=== PATIENT | female | born 1975 | race Caucasian/White ===

== ENCOUNTER 2017-06-14 12:52 | Inpatient (IN) | payer MEDICAID ==
[2017-06-14] MEDS ORDERED: Ampicillin/Sulbactam Na 3 GM in Sodium Chloride 0.9% 100 ML IV ONE (13:00)
[2017-06-14] MEDS ORDERED: Naloxone 0.4 MG/ML SDV IVPUSH PRN (13:00)
[2017-06-14] MEDS ORDERED: Neostigmine Methylsulfate 1 MG/ML 5 ML Syringe ONE (13:09)
[2017-06-14] MEDS ORDERED: Ondansetron 4 MG/2 ML SDV ONE (13:09)
[2017-06-14] MEDS ORDERED: Propofol 200 MG/20 ML SDV ONE (13:09)
[2017-06-14] MEDS ORDERED: Dexamethasone 4 MG/ML SDV ONE (13:09)
[2017-06-14] MEDS ORDERED: fentaNYL 250 MCG/5 ML SDV ONE ×2 (13:09→13:49)
[2017-06-14] MEDS ORDERED: Rocuronium 50 MG/5 ML Vial ONE (13:09)
[2017-06-14] MEDS ORDERED: Succinylcholine/Normal Saline 200 MG/10 ML Syringe ONE (13:09)
[2017-06-14] MEDS ORDERED: Bupivacaine 0.5%/EPINEPHrine 1:200,000 50 ML MDV ONE (13:18)
[2017-06-14] MEDS: Dextrose 5%-Lactated Ringers 1,000 ML IV SCH ×2 (13:22→21:00)
[2017-06-14] MEDS: HYDROmorphone/Normal Saline 15 MG/30 ML PCA IV PRN (14:03)
[2017-06-14] MEDS ORDERED: hydrOXYzine HCl 100 MG/2 ML SDV IM ONE (15:03)
[2017-06-14] MEDS ORDERED: Ondansetron 4 MG/2 ML SDV IVPUSH PRN (16:48)
[2017-06-14] MEDS: Ampicillin/Sulbactam Na 3 GM in Sodium Chloride 0.9% 100 ML IV SCH (17:53)
[2017-06-14] MEDS: Pantoprazole 40 MG Vial IV SCH (20:04)
[2017-06-15] MEDS: Ampicillin/Sulbactam Na 3 GM in Sodium Chloride 0.9% 100 ML IV SCH ×4 (00:03→18:06)
[2017-06-15] MEDS: Dextrose 5%-Lactated Ringers 1,000 ML IV SCH (04:45)
[2017-06-15] MEDS: HYDROmorphone/Normal Saline 15 MG/30 ML PCA IV PRN (07:33)
[2017-06-15] MEDS: Citalopram 10 MG Tab PO SCH (08:12)
[2017-06-15] MEDS: Levothyroxine 100 MCG Tab PO SCH (08:12)
[2017-06-15] MEDS ORDERED: Dextrose 5%-Lactated Ringers 1,000 ML IV SCH (08:15)
[2017-06-15] MEDS: Bisacodyl 5 MG Tab PO SCH ×2 (10:01→20:57)
[2017-06-15] MEDS: Docusate Sodium 100 MG Cap PO SCH ×2 (10:01→20:57)
--- NOTE | 2017-06-15 10:05 | PN ---
DATE OF SERVICE: 06/15/2017 The patient has been afebrile with stable vital signs. Pain control appears to be fairly good. Urine output has been good and Ruiz catheter was removed this morning. We will decrease the IV rate, begin a full-liquid diet, and start Colace and Dulcolax schedule. We will probably switch her to oral pain medication tomorrow and perhaps home late tomorrow or . Aryan Jones MD /[id number]
[2017-06-15] MEDS: Acetaminophen/HYDROcodone 325-5 MG Tab PO PRN ×2 (17:43→22:29)
[2017-06-15] MEDS: Pantoprazole 40 MG Vial IV SCH (20:56)
[2017-06-16] MEDS ORDERED: Amoxicillin/Clavulanate K 875-125 MG Tab PO ONE (06:42)
[2017-06-16 07:14] VITALS: BP 122/70
[2017-06-16] MEDS: Acetaminophen/HYDROcodone 325-5 MG Tab PO PRN (07:27)
[2017-06-16] MEDS: Levothyroxine 100 MCG Tab PO SCH (07:28)
[2017-06-16] MEDS ORDERED: Amoxicillin/Clavulanate K 875-125 MG Tab PO SCH (09:00)
--- NOTE | 2017-06-16 09:00 | DISCH ---
ADMISSION DIAGNOSES: Acute appendicitis, status post Cande-en-Y gastric bypass surgery; unspecified surgical malabsorption; B12 deficiency; and vitamin D deficiency. DISCHARGE DIAGNOSES: Diagnostic laparoscopy with lysis of periappendiceal inflammation, partial cecectomy with removal of attached appendix, and drainage of pericolonic abscess for subacute appendicitis with adhesions adherent to the edge of cecum and pericolonic abscess. Date of surgery 06/14/2017. HISTORY: Myrtle Estes is a 41-year-old female who had a 2-week history of right lower quadrant abdominal pain that intensified in the last 3 to 4 days. After preoperative evaluation and discussion of possible risks and possible complications, she wished to proceed with surgical procedure. HOSPITAL COURSE: Myrtle had her surgery on 06/14/2017. She had no operative complications. On postop day #1, she was changed to oral pain medication. She received stool stimulation and was started on a diet. On postop day #2, she was ready to be discharged to home without any complications. PHYSICAL EXAMINATION: GENERAL: Myrtle Estes is a 41-year-old female. She is alert and orientated. VITAL SIGNS: Height is 5 feet 8.11 inches. Weight is 227 pounds. TPR is 98.7, 66, 16, and blood pressure 122/70. HEENT: Negative. NECK: Supple. HEART: Regular rate and rhythm. LUNGS: Clear. ABDOMEN: JAME drain is intact and has been draining 330 mL of a pink serous drainage. Her sutures look good. Abdominal binder has been on. JAME drain will be removed prior to discharge. EXTREMITIES: Without peripheral edema. DISPOSITION: Discharged to home. CONDITION: Stable and improving. FOLLOWUP APPOINTMENT: With Galina Bolden PA-C, on 06/23/2017 at 10 a.m. DISCHARGE MEDICATIONS: Home medications; Augmentin 875 mg 1 tablet every 12 hours, #20; hydrocodone 1 to 2 oral every 4 hours p.r.n. pain, #30. She is to resume her home medications. DISCHARGE DIET: Usual diet as tolerated. Drink 8 to 10 glasses of water a day. ACTIVITY: No lifting greater than 10 pounds for 2 weeks. Walk 6 times daily, distance and time as tolerated. Driving, do not drive while on pain medication. No shower. DISCHARGE INSTRUCTIONS: Notify provider if any fever, increased pain, nausea, or vomiting. Keep incision site clean and dry. Wear abdominal binder for 2 weeks and then as tolerated. Special instruction; use incentive spirometer 10 times every hour while awake for 2 weeks.
[2017-06-16] MEDS: Docusate Sodium 100 MG Cap PO SCH (09:12)
[2017-06-16] MEDS: Bisacodyl 5 MG Tab PO SCH (09:13)
[2017-06-16] MEDS: Citalopram 10 MG Tab PO SCH (09:13)
--- NOTE | 2017-06-17 11:19 | OR ---
DATE OF PROCEDURE: 06/14/2017 PREOPERATIVE DIAGNOSIS: Acute appendicitis. POSTOPERATIVE DIAGNOSES: 1. Subacute and acute appendicitis with dense adhesions to the pelvic sidewall and edge of cecum. 2. Pericolonic abscess. OPERATIVE PROCEDURES: Diagnostic laparoscopy with lysis of periappendiceal inflammatory adhesions and a partial cystectomy: 1. Including removal of the overlying appendix (71787). 2. Drainage of pericolonic abscess (84749). ANESTHESIA: General. WOOD SCRAP HANDLER: Galina Bolden PA-C. INDICATION FOR PROCEDURE: This is a 41-year-old who [place] and has felt ill from an abdominal standpoint for roughly the last 7 to 10 days. She had been into the clinic this morning and the CT subsequently was obtained which confirmed an acute appendicitis. Plan is to proceed with a diagnostic laparoscopy, with laparotomy if necessary, and appendectomy, additional procedures may be required depending on operative findings otherwise; potential risks including bleeding, infection, leaks from the GI tract closures such as the appendectomy stump were all reviewed, and the patient wishes to proceed. PROCEDURE IN DETAILS: The patient was taken to the operating room. After general endotracheal anesthesia was induced, a Ruiz catheter was inserted and the abdomen prepped and draped. Three fingerbreadths superior and to the left of the xiphoid process, a transverse incision was made and the peritoneal cavity entered under direct vision with Optiview trocar inflated to 15 mmHg pressure with CO2. Laparoscope was then reinserted. No underlying trocar insertion site injuries were seen. Following this, 12 mm trocars were placed in the left lower quadrant and right upper quadrant and the area around the cecum then examined. The patient was noted to have a very dense inflammatory mass, this at this point had gone beyond the acute phase where the soft tissue could be and there was actually some quite a bit in the way of dense scar formation already occurring between the appendix and adjacent cecum to the lateral and posterior abdominal wall. These adhesions were taken down with Harmonic scalpel. Once this was mobilized upward, the base of the appendix and adjacent cecum were too thick to safely staple. Given this, a portion of the cecum was excised at a plane where the wall of the bowel was supple, this was accomplished with 2 firings of the LUMA purple loads and mesentery of the appendix was divided with a combination of casandra and Harmonic scalpel. Specimen was then delivered from the field through a specimen retrieval bag. During the dissection 2 points of abscess formation lateral to the cecum were encountered within the dense scar formation. Cultures of these were obtained. At this point, no further problems were noted. The Reggie-Frost drain was taken through a 5 mm trocar and placed in the right flank and draped across the cecal staple line and from there into the pelvis. Some fibrin sealant was also placed over the area of dissection deep to facilitate continued hemostasis and more superiorly of the staple lines. The ileocecal valve was confirmed to be unobstructed and at that point, no further problems were noted. Trocars were removed and the fascia at the trocar sites was closed with 0 Vicryl stitch and the skin with 4-0 Vicryl skin stitch. The patient was taken to the recovery room in a satisfactory condition. Physician assistant editor, Galina Bolden, played an essential role in assisting in this case, helping to position the patient, retracting structures, suturing and cutting sutures as indicated. Her presence improved the patient's safety and decreased operative time. Aryan Jones MD /[id number]
== END 2017-06-16 10:10 | disposition home or self-care (01) | DRG 330 ==
LOC: JP.SDS 12:52 → JP.MS 12:52 → EDSTATUS 13:00 → JP.2SS 15:00
PROVIDERS: ADMIT Surgery; ATTEND Surgery
DX: K35.80 Unspecified acute appendicitis (principal); K63.0 Abscess of intestine; K91.2 Postsurgical malabsorption, not elsewhere classified; E53.8 Deficiency of other specified B group vitamins; E55.9 Vitamin D deficiency, unspecified; Z98.84 Bariatric surgery status; Z98.0 Intestinal bypass and anastomosis status
CPT/HCPCS: 87070; 87075; 87205; 88304; 94762; A9270-GY; C9113; J0295; J1100; J1170; J2405; J2704; J3010; J3410; J7030; J7042

== ENCOUNTER 2017-06-25 21:06 | Emergency (ER) | payer MEDICAID ==
[2017-06-25 22:04] VITALS: BP 115/58
--- NOTE | 2017-06-25 22:28 | EDM.PDOC ---
ED HPI GENERAL MEDICAL PROBLEM - General Chief Complaint: Wound Recheck Stated Complaint: SURGERY STITCHES COMING OPEN Time Seen by Provider: 06/25/17 22:24 Source of Information: Reports: Patient, RN Notes Reviewed History Limitations: Reports: No Limitations - History of Present Illness INITIAL COMMENTS - FREE TEXT/NARRATIVE: 41-year-old female presents emergency department day with opening of surgical wound surgeries done 16 June sutures have been removed and she is using Steri- Strips done laparoscopically no functional complaints - Related Data Allergies Allergy/AdvReac Type Severity Reaction Status Date / Time No Known Allergies Allergy Verified 06/14/17 13:35 Home Meds: Home Meds Cyanocobalamin (Vitamin B-12) [Vitamin B-12] 2,500 mcg PO DAILY 02/16/14 [ History] Cholecalciferol (Vitamin D3) [Vitamin D3] 5,000 unit PO DAILY 12/12/16 [History] Citalopram [Citalopram HBr] 10 mg PO DAILY 12/12/16 [History] Levothyroxine 200 mcg PO ACBREAKFAST 12/12/16 [History] Pantoprazole [ProTONIX] 40 mg PO BIDAC #60 tab.cr 12/14/16 [Rx] Calcium Citrate/Vitamin D3 [Calcium Citrate + D] 1 tab PO DAILY 06/14/17 [ History] Multivitamin with Minerals [Multiple Vitamin] 1 tab PO BID 06/14/17 [History] Naltrexone HCl [Revia] 25 mg PO BID 06/14/17 [History] Vitamin B Complex [B Complex] 1 tab PO DAILY 06/14/17 [History] Acetaminophen/HYDROcodone [[place] 325-5 MG] 1 - 2 tab PO Q4H PRN #30 tablet 06/16 [Rx] Amoxicillin/Clavulanate K [Augmentin 875-125 MG] 1 tab PO Q12HR #20 tablet 06/16 [Rx] Fluconazole [Diflucan] 100 mg PO Q48H 06/25/17 [History] Past Medical History HEENT History: Reports: Impaired Vision Gastrointestinal History: Reports: Chronic Constipation, Chronic Diarrhea, Inflammatory Bowel Disease Other Gastrointestinal History: colitis 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 PLASTICIAN 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: Reports: Dysfunctional Uterine Bleeding, Musculoskeletal History: Reports: Fracture Other Musculoskeletal History: foot Neurological History: Reports: Migraines Psychiatric History: Reports: Depression Endocrine/Metabolic History: Reports: Hypothyroidism, Obesity/BMI 30+ Hematologic History: Reports: Anemia, B12 Deficiency, Iron Deficiency - Infectious Disease History Infectious Disease History: Reports: Chicken Pox, Mononucleosis - Past Surgical History HEENT Surgical History: Reports: Adenoidectomy, Oral Surgery, Tonsillectomy GI Surgical History: Reports: Appendectomy, Bariatric Procedure, Cholecystectomy , Colonoscopy, EGD Female Surgical History: Reports: Hysterectomy Social & Family History - Family History Family Medical History: Noncontributory Cardiac: Reports: CT GI: Reports: None Musculoskeletal: Reports: Arthritis, RA - Tobacco Use Smoking Status *Q: Never Smoker Years of Tobacco use: 1 Used Tobacco, but Quit: No Second Hand Smoke Exposure: No - Caffeine Use Caffeine Use: Reports: None - Alcohol Use Days Per Week of Alcohol Use: 1 Number of Drinks Per Day: 0 Total Drinks Per Week: 0 - Recreational Drug Use Recreational Drug Use: No ED ROS GENERAL - Review of Systems Review Of Systems: See Below Constitutional: Reports: No Symptoms Respiratory: Reports: No Symptoms Cardiovascular: Reports: No Symptoms GI/Abdominal: Reports: No Symptoms : Reports: No Symptoms Skin: Reports: Wound ED EXAM, GENERAL - Physical Exam Exam: See Below Free Text/Narrative:: Examination of the wound midline incisional wound Steri-Strips are partially off once these are removed there is no appreciable erythema around the wound's wound does open up partially through the dermis otherwise the wound is clean dry and intact, the wound was redressed with benzoin and Steri-Strips Course - Vital Signs Last Recorded V/S: Last Vital Signs Temp 97.2 F 06/25/17 22:12 Pulse 58 L 06/25/17 22:12 Resp 16 06/25/17 22:12 BP 115/58 L 06/25/17 22:12 Pulse Ox 98 06/25/17 22:12 Departure - Departure Time of Disposition: 22:27 Disposition: Home, Self-Care 01 Condition: Good Clinical Impression: Encounter for post surgical wound check - Discharge Information Forms: ED Department Discharge Additional Instructions: Continue regular wound care, keep your follow-up appointment with surgery - Assessment/Plan Plan: Assessment Acuity = acute Site and laterality = partial wound opening status post laparoscopic appendectomy Etiology = probably related to stress on the wound Manifestations = none Location of injury = Home Lab values = none Plan Keep follow-up appointment with surgery Patient was in agreement with the plan all questions were answered, they were instructed to return to the emergency department or call for worsening symptoms. This note was dictated using [email or web address] voice recognition software please call with any questions.
== END 2017-06-25 22:37 | disposition home or self-care (01) ==
LOC: JP.ED 21:06
DX: Z48.89 Encounter for other specified surgical aftercare (principal); F32.9 Major depressive disorder, single episode, unspecified; Z86.2 Personal history of diseases of the blood and blood-forming organs and certain disorders involving the immune mechanism; Z98.890 Other specified postprocedural states; Z90.49 Acquired absence of other specified parts of digestive tract; Z79.899 Other long term (current) drug therapy; Z90.710 Acquired absence of both cervix and uterus
CPT/HCPCS: 99281; 99283

== ENCOUNTER 2019-08-03 10:29 | Day surgery (SDC) | payer MEDICAID ==
[~2019-08-03 10:29] MED LIST: Midazolam 1 MG/ML 2 ML SDV ONE; Propofol 200 MG/20 ML SDV ONE; fentaNYL 100 MCG/2 ML SDV ONE
[2019-08-03] MEDS ORDERED: Cyanocobalamin (Vitamin B12) 1,000 MCG/ML SDV IM ONE (11:00)
[2019-08-03] MEDS ORDERED: Lactated Ringers 1,000 ML IV ONE (11:00)
[2019-08-03] MEDS ORDERED: Glycopyrrolate 0.2 MG/ML 2 ML SDV IVPUSH ONE (11:45)
[2019-08-03] MEDS ORDERED: MVI, Adult with Vitamin K 10 ML, Thiamine 200 MG, Chromium/Copper/Mang/Selen/Zn 1 ML in... IV ONE ×4 (12:15)
[2019-08-03 13:49] VITALS: BP 118/70; PULSE 56
--- NOTE | 2019-08-09 10:37 | OR ---
DATE OF PROCEDURE: 08/03/2019 SURGEON: Aryan Jones MD PREOPERATIVE DIAGNOSIS: Weight regain status post Cande-en-Y gastric bypass. POSTOPERATIVE DIAGNOSIS: Weight regain status post Cande-en-Y gastric bypass with: 1. Enlarged gastric pouch and gastrojejunostomy. 2. Associated gastrogastric fistula. OPERATIVE PROCEDURE: Upper GI endoscopy. ANESTHESIA: IV sedation. INDICATIONS FOR PROCEDURE: This is a 44-year-old, status post Cande-en-Y gastric bypass in 2002, presenting with substantial weight regain. To evaluate the current anatomy, plan is to proceed with an upper GI endoscopy with biopsies as indicated. Potential risks including bleeding and perforation were discussed, and the patient wishes to proceed. DETAILS OF PROCEDURE: The patient was taken to the operating room and placed in a left lateral decubitus position. IV sedation was administered, after which the upper GI endoscope was passed orally through the length of the esophagus and into the pouch, and from there through the gastrojejunostomy roughly 20 cm into the Cande limb. The significant findings were that of a markedly enlarged gastric pouch measuring around 12 cm in maximal dimension and dilated gastrojejunostomy. Apart from that point, significantly the patient was noted to have a gastrogastric fistula with the 1 cm scope easily being passed just to the left of the gastrojejunostomy into the bypassed portion of the stomach. This was associated with some reddening of the fistula tract, but otherwise no major erosions or ulcerations were seen. The scope was withdrawn, procedure was concluded. The patient would appear at this point to have lost a significant restriction and would be a good candidate for a revisional procedure given the staple line breakdown. Aryan Jones MD /[id number]
== END 2019-08-03 14:00 | disposition home or self-care (01) ==
LOC: JP.SDS 10:29
PROVIDERS: ATTEND Surgery
DX: K95.89 Other complications of other bariatric procedure (principal); K21.9 Gastro-esophageal reflux disease without esophagitis; E03.9 Hypothyroidism, unspecified; E66.9 Obesity, unspecified; Z68.38 Body mass index [BMI] 38.0-38.9, adult
CPT/HCPCS: 43235; J2250; J2704; J3010; J3411; J3420; J3490; J7120

== ENCOUNTER 2019-10-11 12:00 | Inpatient (IN) | payer MEDICAID ==
[2019-11-09] MEDS ORDERED: cefOXitin 2 GM Vial ONE (07:33)
[2019-11-09] MEDS ORDERED: Propofol 200 MG/20 ML SDV ONE (09:40)
[2019-11-09] MEDS ORDERED: Rocuronium 50 MG/5 ML Vial ONE ×2 (09:40→09:41)
[2019-11-09] MEDS ORDERED: Ondansetron 4 MG/2 ML SDV ONE ×2 (09:40→09:41)
[2019-11-09] MEDS ORDERED: Dexamethasone 4 MG/ML SDV ONE ×2 (09:40→09:41)
[2019-11-09] MEDS ORDERED: Glycopyrrolate 0.2 MG/ML 5 ML MDV ONE (09:40)
[2019-11-09] MEDS ORDERED: Succinylcholine 200 MG/10 ML MDV ONE (09:40)
[2019-11-09] MEDS ORDERED: Neostigmine Methylsulfate 1 MG/ML 5 ML Syringe ONE (09:40)
[2019-11-09] MEDS ORDERED: Acetaminophen 500 MG Tab PO ONE (10:00)
[2019-11-09] MEDS ORDERED: Scopolamine 1.5 MG Transdermal Patch TRDERM ONE (10:00)
[2019-11-09] MEDS ORDERED: Gabapentin 300 MG Cap PO ONE (10:00)
[2019-11-09] MEDS ORDERED: Celecoxib 200 MG Cap PO ONE (10:00)
[2019-11-09] MEDS ORDERED: fentaNYL 250 MCG/5 ML SDV ONE ×2 (10:04→11:47)
[2019-11-09] MEDS ORDERED: Dextrose 5%-Lactated Ringers 1,000 ML IV SCH (10:30)
[2019-11-09] MEDS ORDERED: Ketamine 500 MG/5 ML MDV IV SCH (10:45)
[2019-11-09] MEDS ORDERED: Ketamine 50 MG in Sodium Chloride 0.9% 49.5 ML IV SCH (10:45)
[2019-11-09] MEDS ORDERED: Lidocaine 2% 100 MG/5 ML Syringe IVPUSH SCH (10:45)
[2019-11-09] MEDS ORDERED: Albuterol/Ipratropium 3.0-0.5 MG/3 ML Neb Soln NEB ONE (10:59)
[2019-11-09] MEDS ORDERED: Loratadine 10 MG Tab.DIS PO ONE (10:59)
[2019-11-09] MEDS ORDERED: cefOXitin 2 GM in Sodium Chloride 0.9% 50 ML IV ONE (11:30)
[2019-11-09] MEDS ORDERED: hydrOXYzine HCL 100 MG/2 ML SDV IM ONE (13:28)
[2019-11-09] MEDS ORDERED: fentaNYL 100 MCG/2 ML SDV IVPUSH ONE ×2 (13:29→13:41)
[2019-11-09] MEDS: Lidocaine 0.4%/D5W 2 GM/500 ML BAG IV SCH (14:15)
[2019-11-09] MEDS ORDERED: hydrOXYzine HCL 100 MG/2 ML SDV IM PRN (14:36)
[2019-11-09] MEDS ORDERED: Metoclopramide 10 MG/2 ML SDV IVPUSH PRN (14:36)
[2019-11-09] MEDS ORDERED: Pantoprazole 40 MG Vial IVPUSH SCH ×2 (14:36→16:00)
[2019-11-09] MEDS ORDERED: Albuterol/Ipratropium 3.0-0.5 MG/3 ML Neb Soln INH PRN (14:36)
[2019-11-09] MEDS ORDERED: Ondansetron 4 MG/2 ML SDV IVPUSH PRN (14:36)
[2019-11-09] MEDS ORDERED: diphenhydrAMINE 50 MG/ML SDV IVPUSH PRN (14:36)
[2019-11-09] MEDS ORDERED: Heparin Sodium 5,000 Units/ML Vial SUBCUT SCH (14:36)
[2019-11-09] MEDS ORDERED: Labetalol 20 MG/4 ML Syringe IVPUSH PRN (14:36)
[2019-11-09] MEDS ORDERED: HYDROmorphone 0.5 MG/0.5 ML Syringe IVPUSH PRN (14:36)
[2019-11-09] MEDS: Albuterol/Ipratropium 3.0-0.5 MG/3 ML Neb Soln INH SCH ×2 (14:52→20:07)
[2019-11-09] MEDS: Acetaminophen Soln 650 MG/20.3 ML UD Cup PO SCH ×2 (15:35→20:07)
[2019-11-09] MEDS: Magnesium Sulfate/Water 2 GM in Premix Bag 1 BAG IV SCH ×2 (15:39→21:43)
[2019-11-09] MEDS ORDERED: MVI, Adult with Vitamin K 10 ML, Thiamine 200 MG, Chromium/Copper/Mang/Selen/Zn 1 ML in... IV SCH ×4 (16:00)
[2019-11-09] MEDS: cefOXitin 2 GM in Sodium Chloride 0.9% 50 ML IV SCH (18:09)
[2019-11-09] MEDS: HYDROmorphone 1 MG/ML Syringe IV PRN (19:59)
[2019-11-09] MEDS: Heparin Sodium 5,000 Units/ML Vial SUBCUT SCH (20:07)
[2019-11-09] MEDS: Gabapentin 250 MG/5 ML Solution ML 470 ML Bottle PO SCH (20:17)
[2019-11-09] MEDS: Dextrose 5%-Lactated Ringers 1,000 ML IV SCH (21:43)
[2019-11-10] MEDS: cefOXitin 2 GM in Sodium Chloride 0.9% 50 ML IV SCH ×3 (00:07→12:10)
[2019-11-10] MEDS ORDERED: Iopamidol 612 MG/ML 50 ML SDV PO STA (02:25)
[2019-11-10] MEDS: Acetaminophen Soln 650 MG/20.3 ML UD Cup PO SCH ×4 (02:27→20:31)
[2019-11-10] MEDS: HYDROmorphone 1 MG/ML Syringe IV PRN (02:56)
[2019-11-10] MEDS: Magnesium Sulfate/Water 2 GM in Premix Bag 1 BAG IV SCH ×4 (03:02→21:00)
--- NOTE | 2019-11-10 03:44 | CRLCR ---
INDICATION: Revision of Cande-en-Y TECHNIQUE: Abdomen defined upper GI COMPARISON: None FINDINGS: Bowel: Bowel pattern is normal. Transit of contrast across the GE junction and into the proximal small bowel with no evidence of leakage/extravasation of contrast. Soft tissues: No sign of free air. No sign of soft tissue mass. No suspicious calcifications. Bones: Unremarkable for age. IMPRESSION: No evidence of leakage/extravasation of contrast. Normal transit of contrast into the proximal small bowel. Dictated by Wilbert Armstrong MD @ 11/10/2019 3:42:30 AM Dictated by: Wilbert Armstrong MD @ 11/10/2019 03:42:43 (Electronically Signed)
[2019-11-10] MEDS: Albuterol/Ipratropium 3.0-0.5 MG/3 ML Neb Soln INH SCH ×4 (07:05→20:31)
[2019-11-10] MEDS ORDERED: Ondansetron 4 MG Tab.DIS PO PRN (07:08)
[2019-11-10] MEDS ORDERED: hydrOXYzine HCl 25 MG Tab PO PRN (07:13)
[2019-11-10] MEDS ORDERED: Dextrose 5%-Lactated Ringers 1,000 ML IV SCH (07:15)
[2019-11-10] MEDS ORDERED: Non-Formulary Medication 1 Each (Levothyroxine [Levothyroxine] 175 MCG) PO SCH (07:30)
--- NOTE | 2019-11-10 08:25 | PN ---
DATE OF SERVICE: 11/10/2019 SUBJECTIVE: Myrtle is postoperative day #1. Her upper GI this morning was normal. Pain is controlled. She has been up, ambulating 4 times. Oral intake 960. Urine output 2900. Vital signs have been stable. She has no questions or concerns today. OBJECTIVE: GENERAL: Myrtle Estes is a pleasant 44-year-old female, alert, orientated, sitting up in the chair. HEENT: Negative. NECK: Supple. HEART: Regular rate and rhythm. LUNGS: Clear. ABDOMEN: Dressing dry and intact. Abdominal binder is on. EXTREMITIES: Without peripheral edema. ASSESSMENT: Diagnostic laparoscopy with revision of Cande-en-Y gastric bypass surgery. 1. Closure of gastrogastric fistula. 2. Revision of the Cande-en-Y small bowel length, the right is 180 cm, biliary pancreatic limb 180, and common limb 200 for gastrogastric fistula with weight regain, status post Cande-en-Y gastric bypass surgery. Date 11/09/2019. Surgeon, Aryan Jones MD. PLAN: 1. Decrease IV to 100 mL per hour. 2. Step 2 gastric bypass diet with no cereal. 3. Zofran ODT 4 mg q.4 hours p.r.n. nausea. 4. Atarax 25 mg 1 every 4 p.r.n. pain. 5. Dressing off, may shower. 6. Levothyroxine 175 mcg p.o. before breakfast. 7. Citalopram/Celexa 20 mg p.o. daily. 8. Good pulmonary toilet. 9. Ambulate 6 times daily. 10.We will evaluate p.r.n. or in a.m. Due to oral intake, may saline lock IV if the patient consumes 1 L of fluids. Plan discharge in a.m. Galina Bolden PA-C /[id number]
[2019-11-10] MEDS: Dextrose 5%-Lactated Ringers 1,000 ML IV SCH (08:28)
[2019-11-10] MEDS: Celecoxib 200 MG Cap PO SCH (08:38)
[2019-11-10] MEDS: Heparin Sodium 5,000 Units/ML Vial SUBCUT SCH ×2 (08:38→20:31)
[2019-11-10] MEDS: Loratadine 10 MG Tab.DIS PO SCH (08:40)
[2019-11-10] MEDS: Citalopram 20 MG Tab PO SCH (08:40)
[2019-11-10] MEDS: Gabapentin 250 MG/5 ML Solution ML 470 ML Bottle PO SCH ×3 (08:48→20:31)
[2019-11-10] MEDS: SCOPOLAMINE PATCH CHECK TOP SCH (08:49)
[2019-11-10] MEDS: Lidocaine 0.4%/D5W 2 GM/500 ML BAG IV SCH (13:36)
[2019-11-10] MEDS ORDERED: MVI, Adult with Vitamin K 10 ML, Thiamine 200 MG, Chromium/Copper/Mang/Selen/Zn 1 ML in... IV SCH ×4 (16:00)
[2019-11-10] MEDS ORDERED: Pantoprazole 40 MG Delayed-Release Granules 1 Packet PO SCH (16:00)
[2019-11-11] MEDS: Acetaminophen Soln 650 MG/20.3 ML UD Cup PO SCH ×2 (03:28→07:43)
[2019-11-11] MEDS: Magnesium Sulfate/Water 2 GM in Premix Bag 1 BAG IV SCH ×2 (05:10→10:59)
[2019-11-11 07:02] VITALS: BP 124/68; PULSE 72
[2019-11-11] MEDS: Albuterol/Ipratropium 3.0-0.5 MG/3 ML Neb Soln INH SCH (07:40)
[2019-11-11] MEDS: Celecoxib 200 MG Cap PO SCH (07:41)
[2019-11-11] MEDS: Heparin Sodium 5,000 Units/ML Vial SUBCUT SCH (07:42)
[2019-11-11] MEDS ORDERED: Cyanocobalamin (Vitamin B12) 1,000 MCG/ML SDV IM ONE (09:00)
[2019-11-11] MEDS: Citalopram 20 MG Tab PO SCH (10:52)
[2019-11-11] MEDS: SCOPOLAMINE PATCH CHECK TOP SCH (10:53)
[2019-11-11] MEDS: Loratadine 10 MG Tab.DIS PO SCH (10:54)
[2019-11-11] MEDS: Gabapentin 250 MG/5 ML Solution ML 470 ML Bottle PO SCH (10:57)
--- NOTE | 2019-11-11 11:15 | DISCH ---
FINAL DIAGNOSES: 1. Weight regain status post Cande-en-Y gastric bypass associated with gastrogastric fistula. 2. Multiple vitamin deficiency. 3. Compulsive reading. 4. Treated hypothyroidism. 5. Dysthymia. OPERATIVE PROCEDURES: Done on 11/09, diagnostic laparoscopy with a Cande-en-Y gastric bypass with; 1. Closure of gastrogastric fistula. 2. Revision of Cande-en-Y small bowel limb lengths. SUMMARY: This is a 44-year-old presenting with some weight regain status post previous Cande- en-Y gastric bypass. Upper endoscopy showed a gastrogastric fistula. At the time of admission, the patient underwent a diagnostic laparoscopy and closure of the gastrogastric fistula. The pouch was also imbricated somewhat to reduce the pouch volume and her Cande limb lengths were altered such that the Cande-en-Y anastomosis was 100 cm more distal than previously, and presently Cande limb length of 180 cm and biliopancreatic length of 180 cm and the common length of 200 cm. Postoperatively, the patient has had no major problems. With the revision of the gastric components, she will be sent home on a step 2 diet until the first appointment. MEDICATIONS ON DISCHARGE: Include Celebrex 200 mg a day x7 days, then p.r.n.; Protonix 40 mg a day, which she can probably stop after she is done with Protonix; Synthroid at 175 mcg p.o. daily; citalopram 20 mg p.o. daily; she can take Tylenol 1 g q.i.d. p.r.n.; and she does have some upper respiratory congestion and continue what we have done in the hospital Claritin 10 mg p.o. daily p.r.n. The patient had a TSH checked which was slightly below normal at 0.213. This is just below normal and rather change the dose at this point, I think we will recheck a TSH in mid November and that will be sent over on the postoperative order sheet from the hospital. Otherwise, follow up with Galina Bolden at [facility] on 11/20/2019.
--- NOTE | 2019-11-13 11:24 | OR ---
DATE OF PROCEDURE: 11/09/2019 SURGEON: Aryan Jones MD PREOPERATIVE DIAGNOSIS: Weight regain status post Cande-en-Y gastric bypass associated with gastrogastric fistula. POSTOPERATIVE DIAGNOSIS: Weight regain status post Cande-en-Y gastric bypass associated with gastrogastric fistula. OPERATIVE PROCEDURES: Diagnostic laparoscopy with revision of Cande-en-Y gastric bypass includin. Closure of gastrogastric fistula. 2. Revision of Cande-en-Y small bowel limb lengths (27436). ANESTHESIA: General. DOMESTIC HELPER: Galina Bolden PA-C. INDICATIONS FOR PROCEDURE: This is a 44-year-old status post Cande-en-Y gastric bypass, presenting with some recent weight regain. Workup included a finding of a gastrogastric fistula. Plan is to proceed with a revisional procedure, including takedown of the gastrogastric fistula. This will probably not help with regard to the weight regain as much as desired, and given this, we will distalize the Cande limb making the common limb shorter in order to facilitate some additional weight loss. The patient does have a significant history of substance abuse, and given this, we will not be overly aggressive in the latter segment of the procedure. Potential risks of the procedure including any bleeding, infection, leaks from various GI tract closures, problems with bowel obstruction over time, as well as possibility of cardiopulmonary, septic, or hemorrhagic complications leading to were discussed, and the patient wishes to proceed. DETAILS OF PROCEDURE: The patient was taken to the operating room and placed in a supine position. After general endotracheal anesthesia was induced, she was converted to a lithotomy position and the abdomen prepped and draped. At 15 cm inferior and 5 cm left of the xiphoid process, a transverse incision was made, and the peritoneal cavity entered under direct vision with an Optiview trocar inflated to 15 mmHg pressure with CO2. Laparoscope was re-inserted. To facilitate the small bowel portion of the procedure, a left lower quadrant 12-mm trocar was then also placed, and then, 4 additional trocars were placed across the upper mid abdomen. General exploration revealed some scattered adhesions. Upon elevation of liver, some adhesions between the area of the gastric bypass and the liver were taken down with Harmonic Scalpel. At this point, plain resection between the [place] side of the Cande limb was initiated. This was then carried up to along the left side of the gastric pouch to the point where the gastric pouch apposition to the bypassed portion of stomach was then isolated and that area was then stapled with 2 firings of the LUMA black loads. An Tuyet tube had been placed through the gastric pouch and into the Cande limb, and following the initial stapling of the stomach, the gastric pouch was imbricated with some seromuscular 0 Ethibond sutures in order to reduce the pouch size as well as the lower stitch reducing the size of the gastrojejunostomy. At this point, attention was taken to the small bowel. The Cande limb was initially marked out at 180 cm and the biliopancreatic limb at 80 cm. We decided to extend the biliopancreatic limb to 180 cm and marking that out. The new common limb was then measured out from the ileocecal valve at 200 cm. The Cande limb was then divided flush with the previous jejunojejunostomy and then a secondary anastomosis between the Cande limb and the biliopancreatic limb again 180 cm from the ligament of Treitz was constructed with internal firing of the Endo-LUMA 60 mm stapler. Common opening was then closed transversely with the same stapler and the angles anastomosed and mesenteric defect approximated with some 0 Ethibond suture. At that point, no further problems were noted. The abdomen was irrigated with an antibiotic-containing saline solution and drains were not felt to be necessary. Trocars were then sequentially removed and the peritoneal cavity deflated. The incision was closed with some 4-0 Vicryl skin stitch and the patient was taken to the recovery room in satisfactory condition. Prior to closure, the patient received bilateral transversus abdominis plane blocks. Physician cardiovascular physician assistant, Galina Bolden, played an essential role in assisting in this case, helping to position the patient, retract structures as needed, as well as suturing and cutting sutures when indicated. Her presence improved patient safety and decreased operative time. Aryan Jones MD /[id number]
== END 2019-11-11 11:16 | disposition home or self-care (01) | DRG 327 ==
LOC: EDSTATUS 11-09 07:30 → JP.SDSSCHI 11-09 10:00 → JP.SDS 11-09 10:00 → JP.MS 11-09 13:30
PROVIDERS: ADMIT Surgery; ATTEND Surgery
PROC: 0D164ZA Bypass Stomach to Jejunum, Percutaneous Endoscopic Approach (ICD-10-PCS; principal; 2019-11-09)
PROC: 3E0G3GC Introduction of Other Therapeutic Substance into Upper GI, Percutaneous Approach (ICD-10-PCS; 2019-11-09)
DX: K95.89 Other complications of other bariatric procedure (principal); K31.6 Fistula of stomach and duodenum; E03.9 Hypothyroidism, unspecified; D50.9 Iron deficiency anemia, unspecified; Z98.84 Bariatric surgery status; E66.9 Obesity, unspecified; E55.9 Vitamin D deficiency, unspecified; F34.1 Dysthymic disorder; Z68.39 Body mass index [BMI] 39.0-39.9, adult
CPT/HCPCS: 36415; 74240; 80053; 82728; 83735; 84100; 84443; 85027; 86850; 86900; 86901; 94640; A9270-GY; C9113; J0171; J0330; J0694; J1100; J1170; J1644; J2001; J2405; J2704; J2710; J2795; J3010; J3410; J3411; J3420; J3475; J3490; J7030; J7050; J7121; J7620-GY; Q9967

== ENCOUNTER 2020-02-06 02:39 | Emergency (ER) | payer MEDICAID ==
[2020-02-06 02:54] VITALS: BP 147/88; PULSE 65
[2020-02-06] MEDS ORDERED: Lactated Ringers 1,000 ML IV ONE (03:24)
[2020-02-06] MEDS ORDERED: Ondansetron 4 MG/2 ML SDV IVPUSH ONE (03:25)
--- NOTE | 2020-02-06 03:30 | EDM.PDOC ---
ED HPI GENERAL MEDICAL PROBLEM - General Chief Complaint: Abdominal Pain Stated Complaint: POST OP PAIN Time Seen by Provider: 02/06/20 03:15 Source of Information: Reports: Patient History Limitations: Reports: No Limitations - History of Present Illness INITIAL COMMENTS - FREE TEXT/NARRATIVE: 44 yo with hx of gastric bypass who presents with concerns of abdominal pain. Symptoms started yesterday morning. Pain has been progressive. Is sharp. Radiates around to the back from the epigastrium. Associated nausea. Seemed to worsened throwing up a piece of meat this evening. Is have BMs. No fevers. Otherwise feeling well. 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 Upper Abdomen Pain Score (Numeric/FACES): 7 - Related Data Allergies Allergy/AdvReac Type Severity Reaction Status Date / Time No Known Allergies Allergy Verified 02/06/20 02:54 Home Meds: Home Meds Cyanocobalamin (Vitamin B-12) [Vitamin B-12] 2,500 mcg SL DAILY 02/16/14 [ History] Cholecalciferol (Vitamin D3) [Vitamin D3] 5,000 unit PO DAILY 12/12/16 [History] Citalopram [Citalopram HBr] 20 mg PO DAILY 12/12/16 [History] Levothyroxine 175 mcg PO ACBREAKFAST 12/12/16 [History] Calcium Citrate/Vitamin D3 [Calcium Citrate + D] 1 tab PO DAILY 06/14/17 [ History] Multivitamin with Minerals [Multiple Vitamin] 1 tab PO BID 06/14/17 [History] Vitamin B Complex [B Complex] 1 tab PO DAILY 06/14/17 [History] Pantoprazole [ProTONIX] 40 mg PO DAILY 08/03/19 [History] Sucralfate [Carafate] 1 gm PO TIDAC #30 cup 02/06/20 [Rx] Past Medical History HEENT History: Reports: Impaired Vision Gastrointestinal History: Reports: Chronic Constipation, Chronic Diarrhea, Inflammatory Bowel Disease, Other (See Below) Other Gastrointestinal History: colitis. 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: Dysfunctional Uterine Bleeding, Musculoskeletal History: Reports: Fracture Other Musculoskeletal History: foot Neurological History: Reports: Migraines Psychiatric History: Reports: Depression Endocrine/Metabolic History: Reports: Hypothyroidism, Obesity/BMI 30+ Hematologic History: Reports: Anemia, B12 Deficiency, Iron Deficiency - Infectious Disease History Infectious Disease History: Reports: Chicken Pox - Past Surgical History HEENT Surgical History: Reports: Adenoidectomy, Oral Surgery, Tonsillectomy GI Surgical History: Reports: Appendectomy, Bariatric Procedure, Cholecystectomy , Colonoscopy, EGD Other GI Surgeries/Procedures: reversal of RNY with repair of fistula Female Surgical History: Reports: Hysterectomy Social & Family History - Family History Family Medical History: Noncontributory Cardiac: Reports: CT GI: Reports: None Musculoskeletal: Reports: Arthritis, RA - Tobacco Use Smoking Status *Q: Former Smoker Used Tobacco, but Quit: Yes Month/Year Tobacco Last Used: 7 years - Caffeine Use Caffeine Use: Reports: None - Recreational Drug Use Recreational Drug Use: No ED ROS GENERAL - Review of Systems Review Of Systems: See Below Constitutional: Reports: No Symptoms HEENT: Reports: No Symptoms Respiratory: Reports: No Symptoms Cardiovascular: Reports: No Symptoms Endocrine: Reports: No Symptoms GI/Abdominal: Reports: Abdominal Pain, Nausea : Reports: No Symptoms Musculoskeletal: Reports: No Symptoms Skin: Reports: No Symptoms Neurological: Reports: No Symptoms Psychiatric: Reports: No Symptoms Hematologic/Lymphatic: Reports: No Symptoms Immunologic: Reports: No Symptoms ED EXAM, GI/ABD - Physical Exam Exam: See Below Exam Limited By: No Limitations General Appearance: Alert, No Apparent Distress Ears: Normal External Exam Nose: Normal Inspection Throat/Mouth: Normal Inspection Head: Atraumatic, Normocephalic Neck: Normal Inspection Respiratory/Chest: Lungs Clear Cardiovascular: Regular Rate, Rhythm GI/Abdominal Exam: Soft, No Distention, Tender (epigastric and RUQ tenderness). No: Rigid, Rebound Back Exam: Normal Inspection Extremities: Normal Inspection Neurological: Alert, Oriented Psychiatric: Normal Affect, Normal Mood Skin Exam: Warm, Dry Course - Vital Signs Last Recorded V/S: Last Vital Signs Temp 36.6 C 02/06/20 02:52 Pulse 65 02/06/20 02:52 Resp 16 02/06/20 02:52 BP 147/88 H 02/06/20 02:52 Pulse Ox 95 02/06/20 02:52 - Orders/Labs/Meds Orders: Active Orders 24 hr Category Date Time Status CBC W/O DIFF,HEMOGRAM [HEME] Stat Lab 02/06/20 03:34 Received HCG QUALITATIVE,SERUM [CHEM] Stat Lab 02/06/20 03:23 Ordered Labs: Laboratory Tests 02/06/20 Range/Units 03:34 Sodium 143 (140-148) mmol/L Potassium 3.8 (3.6-5.2) mmol/L Chloride 105 (100-108) mmol/L Carbon Dioxide 26 (21-32) mmol/L Anion Gap 11.6 (5.0-14.0) mmol/L BUN 13 (7-18) mg/dL Creatinine 0.7 (0.6-1.0) mg/dL Est Cr Clr Drug Dosing 100.77 mL/min Estimated GFR (MDRD) > 60 (>60) Glucose 92 (74-106) mg/dL Calcium 7.9 L (8.5-10.1) mg/dL Total Bilirubin 0.7 (0.2-1.0) mg/dL AST 17 (15-37) U/L ALT 22 (12-78) U/L Alkaline Phosphatase 68 (46-116) U/L Total Protein 6.0 L (6.4-8.2) g/dL Albumin 3.2 L (3.4-5.0) g/dL Globulin 2.8 (2.3-3.5) g/dL Albumin/Globulin Ratio 1.1 L (1.2-2.2) Lipase 133 (73-393) U/L Meds: Medications Discontinued Medications Generic Name Dose Route Start Last Admin Trade Name Freq PRN Reason Stop Dose Admin Al Hydroxide/Mg Hydroxide 15 0 ml 02/06/20 04:57 ml/ Lidocaine HCl 15 ml PO 02/06/20 04:58 ONETIME ONE Lactated Ringer's 1,000 mls @ 1,000 mls/hr 02/06/20 03:24 02/06/20 03:36 Ringers, Lactated IV 02/06/20 04:23 1,000 mls/hr BOLUS ONE Administration Sodium Chloride 85 mls @ 3.5 mls/sec 02/06/20 03:31 02/06/20 04:00 Normal Saline IV 02/06/20 03:32 3.5 mls/sec ASDIRECTED STA Administration Iopamidol 150 ml 02/06/20 03:31 02/06/20 04:00 Isovue-300 (61%) IV 02/06/20 03:32 150 ml . DIRECTED STA Administration Iopamidol 50 ml 02/06/20 03:53 02/06/20 04:00 Isovue-300 (61%) PO 02/06/20 03:54 50 ml ASDIRECTED STA Administration Ondansetron HCl 4 mg 02/06/20 03:25 02/06/20 03:37 Zofran IVPUSH 02/06/20 03:26 4 mg ONETIME ONE Administration - Re-Assessments/Exams Free Text/Narrative Re-Assessment/Exam: 44 yo s/p gastric bypass (distant) with recent correction of gastrogastric bypass presents with epigastric abdominal pain Noted to have normal vitals, exam significant for epigastric tenderness. Given degree of tenderness, surgical history, will need to obtain CT imaging in addition to abdominal labs. Will administer some PO contrast as well given hx of bypass and fistula. IV fluids and zofran. 02/06/20 03:35 Free Text/Narrative Re-Assessment/Exam: CT, labs unremarkable Symptoms remain stable. Suspect this is gastritis/PUD Plan to administer GI cocktail. Will increase protonix to bid and add carafate. Has follow up with surgeon scheduled for tomorrow 02/06/20 05:01 Departure - Departure Time of Disposition: 05:02 Disposition: Home, Self-Care 01 Clinical Impression: Epigastric pain - Discharge Information *PRESCRIPTION DRUG MONITORING PROGRAM REVIEWED*: No *COPY OF PRESCRIPTION DRUG MONITORING REPORT IN PATIENT KUSUM: No Prescriptions: Sucralfate [Carafate] 1 gm PO TIDAC #30 cup Instructions: Gastritis, Adult, [id number] Referrals: Yolande Sweeney MD [Primary Care Provider] - Forms: ED Department Discharge Additional Instructions: Please increases your protonix to twice daily Start the prescribed carafate You can try tylenol for your pain as well but avoid ibuprofen or other NSAIDs Please see Dr Jones tomorrow as planned. See a physician soon for significant worsening of pain. Sepsis Event Note - Evaluation Sepsis Screening Result: No Definite Risk - Focused Exam Vital Signs: Vital Signs Temp Pulse Resp BP Pulse Ox 02/06/20 02:52 36.6 C 65 16 147/88 H 95 Date Exam was Performed: 02/06/20 Time Exam was Performed: 05:00 - My Orders Last 24 Hours: My Active Orders 02/06/20 03:23 HCG QUALITATIVE,SERUM [CHEM] Stat 02/06/20 03:34 CBC W/O DIFF,HEMOGRAM [HEME] Stat - Assessment/Plan Last 24 Hours: My Active Orders 02/06/20 03:23 HCG QUALITATIVE,SERUM [CHEM] Stat 02/06/20 03:34 CBC W/O DIFF,HEMOGRAM [HEME] Stat
[2020-02-06] MEDS ORDERED: Iopamidol 612 MG/ML 150 ML Bottle IV STA (03:31)
[2020-02-06] MEDS ORDERED: Iopamidol 612 MG/ML 50 ML SDV PO STA (03:53)
--- NOTE | 2020-02-06 04:46 | CRLCT ---
INDICATION: Epigastric pain, history of Cande-en-Y and history of fistula TECHNIQUE: CT abdomen and pelvis acquired with IV contrast. 150 cc of Isovue 300, oral contrast utilized COMPARISON: 08/07/2019 FINDINGS: Lower chest: Unremarkable. Liver: Unremarkable. Spleen: Unremarkable. Pancreas: Unremarkable. Gallbladder and bile ducts: History of cholecystectomy. Kidneys: Stable right renal cyst. Adrenal glands: Unremarkable. GI tract: History of Cande-en-Y. Oral contrast identified and proximal jejunal bowel loops. History of appendectomy. Vascular structures: Unremarkable. Lymph nodes: Unremarkable. Miscellaneous: Unremarkable. No free air or significant free fluid. Pelvic Organs: History of hysterectomy. Bones: Unremarkable for age. IMPRESSION: Unremarkable CT of the abdomen and pelvis. No definitive findings to explain the patient`s epigastric pain. Dictated by Wilbert Armstrong MD @ 02/06/2020 4:43:50 AM Please note that all CT scans at this facility use dose modulation, iterative reconstruction, and/or weight-based dosing when appropriate to reduce radiation dose to as low as reasonably achievable. Dictated by: Wilbert Armstrong MD @ 02/06/2020 04:43:56 (Electronically Signed)
[2020-02-06] MEDS ORDERED: Alum Hydrox/Mag Hydrox/Simeth 15 ML, Lidocaine 2% 15 ML PO ONE ×2 (04:57)
== END 2020-02-06 05:11 | disposition home or self-care (01) ==
LOC: JP.ED 02:39
DX: R10.13 Epigastric pain (principal); F32.9 Major depressive disorder, single episode, unspecified; E03.9 Hypothyroidism, unspecified; E66.9 Obesity, unspecified; Z68.35 Body mass index [BMI] 35.0-35.9, adult; Z90.49 Acquired absence of other specified parts of digestive tract; Z98.84 Bariatric surgery status; Z87.891 Personal history of nicotine dependence; Z79.899 Other long term (current) drug therapy
CPT/HCPCS: 36415; 74177; 80053; 83690; 85027; 96361; 96374; 99284; A9270; J2405; J7050; J7120; Q9967; 99283

== ENCOUNTER 2020-02-20 19:20 | Inpatient (IN) | payer MEDICAID ==
--- NOTE | 2020-02-20 19:51 | EDM.PDOC ---
ED HPI GENERAL MEDICAL PROBLEM - General Chief Complaint: Abdominal Pain Stated Complaint: STOMACH PAINS Time Seen by Provider: 02/20/20 19:35 Source of Information: Reports: Patient History Limitations: Reports: No Limitations - History of Present Illness INITIAL COMMENTS - FREE TEXT/NARRATIVE: 44-year-old female who is been having abdominal pain for the past several weeks , had a CT scan 2 weeks ago that was normal. For the past 2 days it has been worse, she is having food get "stuck" after she eats and she vomited once yesterday. Pain tends to be periumbilical and epigastric radiating to her back , no fevers or chills, no respiratory symptoms. She feels "bloated". Pain is different now, is more upper abdomen where when she was evaluated 2 weeks ago it was more lower abdomen. A pelvic ultrasound was also done at that time which was negative. Onset: Gradual Duration: Week(s): Quality: Reports: Ache, Pressure Worsens with: Reports: Eating Associated Symptoms: Reports: Malaise, Nausea/Vomiting. Denies: Loss of Appetite, Shortness of Breath Middle Abdomen Pain Score (Numeric/FACES): 4 - Related Data Allergies Allergy/AdvReac Type Severity Reaction Status Date / Time No Known Allergies Allergy Verified 02/20/20 19:30 Home Meds: Home Meds Cyanocobalamin (Vitamin B-12) [Vitamin B-12] 2,500 mcg SL DAILY 02/16/14 [ History] Cholecalciferol (Vitamin D3) [Vitamin D3] 5,000 unit PO DAILY 12/12/16 [History] Citalopram [Citalopram HBr] 20 mg PO DAILY 12/12/16 [History] Levothyroxine 175 mcg PO ACBREAKFAST 12/12/16 [History] Calcium Citrate/Vitamin D3 [Calcium Citrate + D] 1 tab PO DAILY 06/14/17 [ History] Multivitamin with Minerals [Multiple Vitamin] 1 tab PO BID 06/14/17 [History] Vitamin B Complex [B Complex] 1 tab PO DAILY 06/14/17 [History] Pantoprazole [ProTONIX] 40 mg PO DAILY 08/03/19 [History] Sucralfate [Carafate] 1 gm PO TIDAC #30 cup 02/06/20 [Rx] Past Medical History HEENT History: Reports: Impaired Vision Gastrointestinal History: Reports: Chronic Constipation, Chronic Diarrhea, Inflammatory Bowel Disease, Other (See Below) Other Gastrointestinal History: colitis. 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, Musculoskeletal History: Reports: Fracture Other Musculoskeletal History: foot Neurological History: Reports: Migraines Psychiatric History: Reports: Depression Endocrine/Metabolic History: Reports: Hypothyroidism, Obesity/BMI 30+ Hematologic History: Reports: Anemia, B12 Deficiency, Iron Deficiency - Infectious Disease History Infectious Disease History: Reports: Chicken Pox - Past Surgical History HEENT Surgical History: Reports: Adenoidectomy, Oral Surgery, Tonsillectomy GI Surgical History: Reports: Appendectomy, Bariatric Procedure, Cholecystectomy , Colonoscopy, EGD Other GI Surgeries/Procedures: reversal of RNY with repair of fistula. revision October 2019 Female Surgical History: Reports: Hysterectomy Social & Family History - Family History Family Medical History: Noncontributory Cardiac: Reports: [place] GI: Reports: None Musculoskeletal: Reports: Arthritis, RA - Tobacco Use Smoking Status *Q: Former Smoker Used Tobacco, but Quit: Yes Month/Year Tobacco Last Used: 2011 - Caffeine Use Caffeine Use: Reports: None - Alcohol Use Date of Last Drink: 02/10/20 - Recreational Drug Use Recreational Drug Use: No ED ROS GENERAL - Review of Systems Review Of Systems: See Below Constitutional: Denies: Fever, Chills HEENT: Reports: No Symptoms Respiratory: Denies: Shortness of Breath Cardiovascular: Denies: Chest Pain, Palpitations GI/Abdominal: Reports: Abdominal Pain, Nausea, Vomiting. Denies: Diarrhea Skin: Reports: No Symptoms Neurological: Reports: No Symptoms ED EXAM, GI/ABD - Physical Exam Exam: See Below Exam Limited By: No Limitations General Appearance: Alert, No Apparent Distress Eyes: Bilateral: Normal Appearance Respiratory/Chest: No Respiratory Distress, Lungs Clear GI/Abdominal Exam: Normal Bowel Sounds, Soft, Tender (Does react with some tenderness to palpation across the upper abdomen, especially epigastric. No rebound tenderness.) Neurological: Alert, Oriented Psychiatric: Normal Affect, Normal Mood Skin Exam: Warm, Dry Course - Vital Signs Last Recorded V/S: Last Vital Signs Temp 98.3 F 02/20/20 21:55 Pulse 63 02/20/20 21:55 Resp 16 02/20/20 21:55 BP 134/72 02/20/20 21:55 Pulse Ox 98 02/20/20 21:55 - Orders/Labs/Meds Orders: Active Orders 24 hr Category Date Time Status Lactated Ringers [Ringers, Lactated] 1,000 ml Med 02/20/20 20:00 Active IV ASDIRECTED Sodium Chloride 0.9% [Normal Saline] 85 ml Med 02/20/20 20:45 Active IV ASDIRECTED Medication Orders Lactated Ringer's (Ringers, Lactated) 1,000 mls @ 150 mls/hr IV ASDIRECTED DELILAH Last Admin: 02/20/20 20:14 Dose: 150 mls/hr Sodium Chloride (Normal Saline) 85 mls @ 3.5 mls/sec IV ASDIRECTED DELILAH Last Admin: 02/20/20 20:46 Dose: 3.5 mls/sec Dextrose/Lactated Ringer's (Dextrose 5%-Lactated Ringers) 1,000 mls @ 150 mls/ hr IV ASDIRECTED DELILAH Morphine Sulfate (Morphine) 1 mg IVPUSH Q2H DELILAH Ondansetron HCl (Zofran) 4 mg IVPUSH Q4H PRN PRN Reason: Nausea/Vomiting Labs: Laboratory Tests 02/20/20 02/20/20 02/20/20 Range/Units 19:52 19:52 19:52 WBC 9.3 (4.5-11.0) K/uL RBC 3.71 (3.30-5.50) M/uL Hgb 11.1 L (12.0-15.0) g/dL Hct 33.2 L (36.0-48.0) % MCV 90 (80-98) fL MCH 30 (27-31) pg MCHC 33 (32-36) % Plt Count 263 (150-400) K/uL Neut % (Auto) 73 H (36-66) % Lymph % (Auto) 18 L (24-44) % [place] % (Auto) 8 H (2-6) % Eos % (Auto) 1 L (2-4) % Baso % (Auto) 1 (0-1) % Sodium 141 (140-148) mmol/L Potassium 3.7 (3.6-5.2) mmol/L Chloride 105 (100-108) mmol/L Carbon Dioxide 25 (21-32) mmol/L Anion Gap 11.0 (5.0-14.0) mmol/L BUN 10 (7-18) mg/dL Creatinine 0.6 (0.6-1.0) mg/dL Est Cr Clr Drug Dosing 117.57 mL/min Estimated GFR (MDRD) > 60 (>60) Glucose 90 (74-106) mg/dL Lactic Acid 1.1 (0.4-2.0) mmol/L Calcium 8.0 L (8.5-10.1) mg/dL Total Bilirubin 0.5 (0.2-1.0) mg/dL AST 15 (15-37) U/L ALT 21 (12-78) U/L Alkaline Phosphatase 73 (46-116) U/L Total Protein 6.2 L (6.4-8.2) g/dL Albumin 3.1 L (3.4-5.0) g/dL Globulin 3.1 (2.3-3.5) g/dL Albumin/Globulin Ratio 1.0 L (1.2-2.2) Lipase 135 (73-393) U/L Meds: Medications Generic Name Dose Route Start Last Admin Trade Name Freq PRN Reason Stop Dose Admin Lactated Ringer's 1,000 mls @ 150 mls/hr 02/20/20 20:00 02/20/20 20:14 Ringers, Lactated IV 150 mls/hr ASDIRECTED DELILAH Administration Sodium Chloride 85 mls @ 3.5 mls/sec 02/20/20 20:45 02/20/20 20:46 Normal Saline IV 3.5 mls/sec ASDIRECTED DELILAH Administration Dextrose/Lactated Ringer's 1,000 mls @ 150 mls/hr 02/20/20 22:00 Dextrose 5%-Lactated Ringers IV ASDIRECTED DELILAH Morphine Sulfate 1 mg 02/20/20 23:00 Morphine IVPUSH Q2H DELILAH Ondansetron HCl 4 mg 02/20/20 21:53 Zofran IVPUSH Q4H PRN Nausea/Vomiting Discontinued Medications Generic Name Dose Route Start Last Admin Trade Name Freq PRN Reason Stop Dose Admin Hydromorphone HCl 0.5 mg 02/20/20 20:08 02/20/20 20:16 Dilaudid IVPUSH 02/20/20 20:09 0.5 mg ONETIME ONE Administration Hydromorphone HCl 0.5 mg 02/20/20 21:53 02/20/20 22:12 Dilaudid IVPUSH 0.5 mg Q1H PRN Administration Pain Iopamidol 150 ml 02/20/20 20:45 02/20/20 20:45 Isovue-300 (61%) IV 150 ml . DIRECTED DELILAH Administration Ondansetron HCl 4 mg 02/20/20 20:08 02/20/20 20:16 Zofran IVPUSH 02/20/20 20:09 4 mg ONETIME ONE Administration Sodium Chloride 10 ml 02/20/20 20:32 02/20/20 20:46 Saline Flush FLUSH 02/20/20 20:33 10 ml ONETIME ONE Administration - Re-Assessments/Exams Free Text/Narrative Re-Assessment/Exam: 02/20/20 19:51 An IV was started and lactated Ringer at 150 cc an hour was initiated. CBC CMP lipase and lactic acid were drawn. 02/20/20 20:00 Patient's condition was discussed with Dr. Jones, a second CT scan was requested which will be ordered. 02/20/20 20:26 Labs are all very reassuring, patient started to develop some pain so was given 0.5 mg of Dilaudid and 4 mg of IV Zofran prior to the scan. Renal function is normal, IV contrast will be used. 02/20/20 21:31 IMPRESSION: Possible thickening of the distal gastric body. Correlate with gastritis clinically. Cholecystectomy. Intra and extrahepatic biliary duct dilatation most likely related to reservoir effect. Discussed with Dr. Jones, patient will be admitted with likely EGD or other evaluation tomorrow morning. Departure - Departure Time of Disposition: 21:44 Disposition: Admitted As Inpatient 67 Clinical Impression: Abdominal pain Qualifiers: Abdominal location: epigastric Qualified Code(s): R10.13 - Epigastric pain - Discharge Information Sepsis Event Note - Evaluation Sepsis Screening Result: No Definite Risk - Focused Exam Vital Signs: Vital Signs Temp Pulse Resp BP Pulse Ox 02/20/20 19:35 98.3 F 62 18 140/87 97 02/20/20 19:26 98.3 F 62 18 140/87 97 Date Exam was Performed: 02/20/20 Time Exam was Performed: 23:09 - My Orders Last 24 Hours: My Active Orders 02/20/20 20:00 Lactated Ringers [Ringers, Lactated] 1,000 ml IV ASDIRECTED 02/20/20 20:45 Sodium Chloride 0.9% [Normal Saline] 85 ml IV ASDIRECTED - Assessment/Plan Last 24 Hours: My Active Orders 02/20/20 20:00 Lactated Ringers [Ringers, Lactated] 1,000 ml IV ASDIRECTED 02/20/20 20:45 Sodium Chloride 0.9% [Normal Saline] 85 ml IV ASDIRECTED
[2020-02-20] MEDS ORDERED: Lactated Ringers 1,000 ML IV SCH (20:00)
[2020-02-20] MEDS ORDERED: HYDROmorphone 0.5 MG/0.5 ML Syringe IVPUSH ONE (20:08)
[2020-02-20] MEDS ORDERED: Ondansetron 4 MG/2 ML SDV IVPUSH ONE (20:08)
[2020-02-20] MEDS ORDERED: Sodium Chloride 0.9% 10 ML Syringe FLUSH ONE (20:32)
[2020-02-20] MEDS ORDERED: Iopamidol 612 MG/ML 150 ML Bottle IV SCH (20:45)
--- NOTE | 2020-02-20 21:27 | CRLCT ---
INDICATION: Abdominal pain TECHNIQUE: CT abdomen and pelvis acquired with IV contrast. 150 cc Isovue-300 COMPARISON: 02/06/2020 FINDINGS: Lower chest: Unremarkable. Liver: Unremarkable. Spleen: Unremarkable. Pancreas: Unremarkable. Gallbladder and bile ducts: Cholecystectomy. Intra and extrahepatic biliary duct dilatation most likely related to reservoir effect. Kidneys: Unremarkable. Adrenal glands: Unremarkable. GI tract: Evidence of prior gastric surgery and possible thickening of the distal gastric body. Appendix is visualized. Vascular structures: Unremarkable. Lymph nodes: Unremarkable. Miscellaneous: Unremarkable. No free air or significant free fluid. Pelvic Organs: Unremarkable. Bones: Bilateral L5 pars defects. IMPRESSION: Possible thickening of the distal gastric body. Correlate with gastritis clinically. Cholecystectomy. Intra and extrahepatic biliary duct dilatation most likely related to reservoir effect. Dictated by Wilbert Armstrong MD @ 02/20/2020 9:24:46 PM Please note that all CT scans at this facility use dose modulation, iterative reconstruction, and/or weight-based dosing when appropriate to reduce radiation dose to as low as reasonably achievable. Dictated by: Wilbert Armstrong MD @ 02/20/2020 21:25:52 (Electronically Signed)
[2020-02-20] MEDS ORDERED: HYDROmorphone 0.5 MG/0.5 ML Syringe IVPUSH PRN (21:53)
[2020-02-20] MEDS ORDERED: Ondansetron 4 MG/2 ML SDV IVPUSH PRN (21:53)
[2020-02-20] MEDS ORDERED: Morphine 2 MG/ML Syringe IVPUSH SCH (23:00)
[2020-02-21] MEDS: Dextrose 5%-Lactated Ringers 1,000 ML IV SCH ×3 (04:50→22:24)
[2020-02-21] MEDS ORDERED: Propofol 200 MG/20 ML SDV ONE (07:30)
[2020-02-21] MEDS ORDERED: fentaNYL 100 MCG/2 ML SDV ONE (07:30)
[2020-02-21] MEDS ORDERED: Midazolam 1 MG/ML 2 ML SDV ONE (07:31)
--- NOTE | 2020-02-21 08:39 | HP ---
HISTORY OF PRESENT ILLNESS: Myrtle was admitted through emergency room on 02/20/2020. She re-presented to the emergency room for abdominal pain. 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 She states the pain did get better for maybe 2 weeks she thinks and then the pain came back again. She was last seen in the clinic on 02/07/2020 and prior to that was in the emergency department at [facility] with a negative CT scan. She was started on Carafate and was to continue with the Protonix. Myrtle states that despite taking Protonix 40 mg twice a day and Carafate 1 g 30 minutes before each meal and at bedtime, she continues to have the midepigastric abdominal pain. Pain radiates to the right and left upper quadrants. Now, she states food is getting stuck and she had 1 episode where she vomited. Occasionally will feel bloated, but that she states is rare. Two weeks ago, she states she was eating and drinking without any problems and now is having difficulty swallowing as well as certain foods will make the pain worse. Right now, she cannot remember which foods aggravate the pain. Does not wake her up in the middle of the night. Has not interfered with any activity. REVIEW OF SYSTEMS: Remainder of review of systems negative for any pertinent positives and negatives. Post bariatric bypass surgery, primary procedure 06/22/2003. Surgery type, laparoscopic. Consult weight 282. Preop weight 289.7. Today's weight is 227 pounds, 8.27 ounces. Total revision of Cande-en-Y gastric bypass surgery 11/09/2019. Consult weight 256.8. Total weight loss after revision of Cande-en-Y 29.8 pounds. Weight is up 2 pounds since last clinic visit 2 weeks ago. CURRENT MEDICATIONS: Protonix 40 mg b.i.d., B complex 1 daily, Synthroid 175 mcg by mouth once daily, Celexa 10 mg once daily, calcium carbonate once daily, multivitamin chewable twice daily, vitamin D3 5000 international units daily, and B12 1000 mcg sublingual daily. PAST MEDICAL HISTORY: Chronic constipation, chronic diarrhea, inflammatory bowel disease, history of colitis, migraine headaches, depression, hypothyroidism, iron deficiency anemia, B12 deficiency, morbid obesity, BMI 35.6. PAST SURGICAL PROCEDURES: Revision of Cande-en-Y gastric bypass surgery 11/09/2019, EGD 08/03/2019, partial small bowel obstruction 06/14/2017, appendectomy 06/14/2017, cholecystectomy 02/23/2013, section 02/22/2002, colonoscopy 02/23/2013, EGD 02/20/2014, 02/23/2013, 12/13/2016, 08/03/2019, Cande-en-Y gastric bypass 06/22/2003, hysterectomy 02/28/2010, tonsillectomy 11/24/2004, and tubal ligation 02/22/2002. REVIEW OF SYSTEMS: CONSTITUTIONAL: Denies any fever, chills, or night sweats. SKIN: No rashes or changes in skin lesion. HEENT: No headache, ear pain, blurred vision. CARDIOVASCULAR: No chest pains or palpitations. RESPIRATORY: No cough or shortness of breath. ENDOCRINE: Negative. HEMATOLOGIC: Negative. LYMPH NODES: Negative for any tenderness. : No UTI signs and symptoms. MUSCULOSKELETAL: No joint pain or swelling. NEURO: No focal neurological symptoms, spells, memory changes. PSYCHIATRIC: Positive for depression and history of alcohol abuse and continues to drink, but not as frequent. Review of systems negative. Protein: States she is getting about 60 g or more a day. Exercises by walking. Fluids: 64 ounces vitamins. Taking all recommended vitamins. Smoking: Negative. Alcohol use: Had 2 beers 2 weeks ago. Otherwise, has not had any alcohol. Caffeine negative; and carbonation, had 1 soda since November. OBJECTIVE: GENERAL: Myrtle Estes is a pleasant 44-year-old female. VITAL SIGNS: Height is 5 feet 7 inches, weight is 227 pounds, 8 ounces, BMI 35.6. TPR at 0721, 97.7, 58, 16, blood pressure 95/74. HEENT: Negative. NECK: Supple. HEART: Regular rate and rhythm. LUNGS: Clear. ABDOMEN: Flat, nondistended. Tenderness in the mid epigastric area. EXTREMITIES: Negative for any joint swelling. Full range of motion. NEUROLOGIC: Cranial nerves II-XII intact. MUSCULOSKELETAL: Negative. PSYCHIATRIC: Mood and affect flat, orientated. ASSESSMENT: 1. Mid epigastric abdominal pain. 2. CT scan report, possible thickening of the distal gastric body, correlate with gastritis clinically. SB revision Cande-en-Y gastric bypass surgery. 3. Unspecified surgical malabsorption. 4. B12 deficiency. 5. Vitamin D deficiency. 6. Obesity. BMI is 35.6. PLAN: 1. Schedule and have consent signed for EGD with possible biopsies and dilatation. 2. We will evaluate p.r.n. or in a.m. Galina Bolden PA-C /[id number]
[2020-02-21] MEDS ORDERED: Iopamidol 612 MG/ML 100 ML Bottle ONE (09:00)
[2020-02-21] MEDS: Acetaminophen 500 MG Tab PO PRN ×3 (10:53→22:51)
--- NOTE | 2020-02-21 11:07 | CR ---
UGI WITH SMALL BOWEL FOLLOW-THROUGH CLINICAL HISTORY: Upper abdominal pain, previous bariatric surgery FINDINGS: Preliminary film shows a nonacute intestinal gas pattern. Patient swallowed water-soluble contrast without difficulty. Esophagus had a normal contour. Patient has had previous gastric bypass surgery. There is no evidence of extravasation or obstruction proximal small bowel has a normal contour and mucosal pattern. IMPRESSION: Status post gastric bypass with no evidence of extravasation, obstruction or inflammatory change SMALL BOWEL FOLLOW-THROUGH TECHNIQUE: Heddle Machine Operator film as well as sequential images throughout the transit of water-soluble contrast to the large bowel were obtained. Fluoroscopy compression spot images were obtained over the low pelvic bowel loops and terminal ileum. FINDINGS: Heddle Machine Operator film demonstrates no abnormalities. Patient is status post bariatric surgery with Cande-en-Y. There is no evidence of small bowel wall thickening, stricture, or abnormal mass. Terminal ileum appears unremarkable. Transit time was somewhat quick at less than 20 minutes. IMPRESSION: Status post gastric bypass with Cande-en-Y No evidence of obstruction or inflammation Relatively rapid transit through the small bowel
--- NOTE | 2020-02-21 14:45 | OR ---
DATE OF PROCEDURE: 02/21/2020 SURGEON: Aryan Jones MD PREOPERATIVE DIAGNOSES: Epigastric and mid-abdominal pain with intermittent vomiting. POSTOPERATIVE DIAGNOSIS: Normal upper gastrointestinal endoscopic examination status post Cande-en-Y gastric bypass. OPERATIVE PROCEDURES: Upper gastrointestinal endoscopy with biopsies of gastric pouch for CLOtest (17342). ANESTHESIA: IV sedation. INDICATION FOR PROCEDURE: This is a 44-year-old status post Cande-en-Y gastric bypass. This was revised in October with closure of gastrogastric fistula and revision of the small bowel limb lengths. The patient, after doing well for about a month, had increasing intermittent abdominal pain and reported some nausea and vomiting intermittently. She has been on Carafate and Protonix, although may be not overly compliant in taking those. The plan is to proceed with upper GI endoscopy for diagnostic purposes. Potential risks of the procedure including bleeding and perforation were discussed, and the patient wishes to proceed. DESCRIPTION OF PROCEDURE: The patient was taken to the operating room and placed in a left lateral decubitus position. IV sedation was administered, after which the upper GI endoscope was passed orally through the length of the esophagus and into the gastric pouch, from there through the gastrojejunostomy roughly 20 cm into the Cande limb. Findings overall were completely normal. There were no areas of significant inflammation, stricturing, or other obvious problems through the entire length of the examination. Biopsies were then obtained from the gastric pouch and sent for CLOtest for H pylori. Minimal bleeding from the biopsy site was seen, and the procedure then concluded. The patient was taken to the recovery room in satisfactory condition. At this point, we will proceed to obtain an upper GI small-bowel follow-through x-ray today and also review the CT scan which reportedly showed some edema in the bypassed portion of the stomach and the site of correctable problem surgically in either of those 2 areas. Aryan Jones MD /[id number]
[2020-02-21] MEDS: Morphine 2 MG/ML Syringe IVPUSH PRN (23:10)
[2020-02-22] MEDS: Morphine 2 MG/ML Syringe IVPUSH PRN ×2 (04:09→08:21)
[2020-02-22] MEDS: Dextrose 5%-Lactated Ringers 1,000 ML IV SCH ×2 (05:15→23:19)
[2020-02-22] MEDS ORDERED: Bupivacaine 0.5% 50 ML MDV ONE (06:54)
[2020-02-22] MEDS ORDERED: Meropenem 500 MG SDV ONE (06:54)
[2020-02-22] MEDS ORDERED: Lidocaine 1% with EPINEPHrine 1:100,000 50 ML MDV ONE (06:54)
[2020-02-22] MEDS ORDERED: Propofol 200 MG/20 ML SDV ONE (07:46)
[2020-02-22] MEDS ORDERED: Neostigmine Methylsulfate 1 MG/ML 5 ML Syringe ONE (07:46)
[2020-02-22] MEDS ORDERED: Glycopyrrolate 0.2 MG/ML 5 ML MDV ONE (07:46)
[2020-02-22] MEDS ORDERED: Succinylcholine 200 MG/10 ML MDV ONE (07:46)
[2020-02-22] MEDS ORDERED: Ondansetron 4 MG/2 ML SDV ONE (07:46)
[2020-02-22] MEDS ORDERED: Dexamethasone 4 MG/ML SDV ONE (07:46)
[2020-02-22] MEDS ORDERED: fentaNYL 250 MCG/5 ML SDV ONE ×2 (07:46→10:08)
[2020-02-22] MEDS ORDERED: Rocuronium 50 MG/5 ML Vial ONE (07:46)
[2020-02-22] MEDS ORDERED: Magnesium Sulfate 3 GM in Sodium Chloride 0.9% 100 ML IV SCH (08:00)
[2020-02-22] MEDS ORDERED: Ketamine 500 MG/5 ML MDV IV SCH (08:00)
[2020-02-22] MEDS ORDERED: Ketamine 50 MG in Sodium Chloride 0.9% 49.5 ML IV SCH (08:00)
--- NOTE | 2020-02-22 08:30 | PN ---
DATE OF SERVICE: 02/22/2020 SUBJECTIVE: Vital signs have been stable. She has been afebrile. Pain has been controlled. She had 2 doses of morphine last evening. Oral intake 2340. Urine output 2900. She states she has had 10 watery bowel movements yesterday and she has no questions in regard to surgery case to follow. OBJECTIVE: GENERAL: Myrtle Estes is a 44-year-old female, alert and orientated. VITAL SIGNS: TPR at 0700, 98, 67, 16, blood pressure 136/71. HEENT: Negative. NECK: Supple. HEART: Regular rate and rhythm. LUNGS: Clear. ABDOMEN: Soft. Minimally tender in the midepigastric area. EXTREMITIES: Without peripheral edema. ASSESSMENT: 1. Esophagogastroduodenoscopy with biopsies of gastric pouch for epigastric and mid abdominal pain with intermittent vomiting. 2. CT scan: Thickening of the distal gastric body. PLAN: Remain n.p.o. for surgery case to follow. Orders to be written postoperatively. Galina Bolden PA-C /[id number]
[2020-02-22] MEDS ORDERED: cefOXitin 2 GM in Sodium Chloride 0.9% 50 ML IV ONE (09:45)
[2020-02-22] MEDS ORDERED: Lactated Ringers 1,000 ML ONE (10:33)
[2020-02-22] MEDS ORDERED: Naloxone 0.4 MG/ML SDV IVPUSH PRN (12:09)
[2020-02-22] MEDS ORDERED: Naloxone 0.4 MG/ML SDV IV PRN (12:17)
[2020-02-22] MEDS: HYDROmorphone/Normal Saline 15 MG/30 ML PCA IV PRN (12:27)
[2020-02-22] MEDS ORDERED: hydrOXYzine HCL 100 MG/2 ML SDV IM ONE (12:57)
[2020-02-22] MEDS ORDERED: Meperidine PF 100 MG/ML Syringe IM ONE (13:26)
[2020-02-22] MEDS ORDERED: Acetaminophen 1,000 MG in Premix Bag 1 BAG IV ONE (13:50)
[2020-02-22] MEDS ORDERED: Metoclopramide 10 MG/2 ML SDV IVPUSH PRN (15:04)
[2020-02-22] MEDS ORDERED: Labetalol 20 MG/4 ML Syringe IVPUSH PRN (15:04)
[2020-02-22] MEDS ORDERED: Calcium Gluconate 10% 1 GM/10 ML SDV IVPUSH PRN (15:04)
[2020-02-22] MEDS ORDERED: hydrOXYzine HCL 100 MG/2 ML SDV IM PRN (15:04)
[2020-02-22] MEDS ORDERED: Ondansetron 4 MG/2 ML SDV IVPUSH PRN (15:04)
[2020-02-22] MEDS ORDERED: diphenhydrAMINE 50 MG/ML SDV IVPUSH PRN (15:04)
[2020-02-22] MEDS ORDERED: MVI, Adult with Vitamin K 10 ML, Thiamine 200 MG, Chromium/Copper/Mang/Selen/Zn 1 ML in... IV SCH ×4 (16:00)
[2020-02-22] MEDS ORDERED: Pantoprazole 40 MG Vial IVPUSH SCH (16:00)
[2020-02-22] MEDS: cefOXitin 2 GM in Sodium Chloride 0.9% 50 ML IV SCH ×2 (16:26→21:53)
[2020-02-22] MEDS: Heparin Sodium 5,000 Units/ML Vial SUBCUT SCH (21:25)
[2020-02-22] MEDS: Gabapentin 250 MG/5 ML Solution ML 470 ML Bottle PO SCH (21:26)
[2020-02-22] MEDS: Acetaminophen 500 MG Tab PO SCH (21:41)
[2020-02-23] MEDS: cefOXitin 2 GM in Sodium Chloride 0.9% 50 ML IV SCH ×4 (03:23→21:05)
[2020-02-23] MEDS ORDERED: Iopamidol 612 MG/ML 50 ML SDV PO ONE (03:52)
[2020-02-23] MEDS: HYDROmorphone/Normal Saline 15 MG/30 ML PCA IV PRN (05:14)
[2020-02-23] MEDS: Dextrose 5%-Lactated Ringers 1,000 ML IV SCH ×3 (05:18→14:25)
[2020-02-23] MEDS: Acetaminophen 500 MG Tab PO SCH ×3 (05:19→21:05)
[2020-02-23] MEDS ORDERED: Ondansetron 4 MG Tab.DIS PO PRN (07:40)
[2020-02-23] MEDS: SCOPOLAMINE PATCH CHECK TOP SCH (08:24)
[2020-02-23] MEDS: Gabapentin 250 MG/5 ML Solution ML 470 ML Bottle PO SCH ×3 (08:28→21:16)
[2020-02-23] MEDS: Heparin Sodium 5,000 Units/ML Vial SUBCUT SCH ×2 (08:28→21:05)
[2020-02-23] MEDS: Celecoxib 200 MG Cap PO SCH ×2 (08:28→21:05)
[2020-02-23] MEDS: Pantoprazole 40 MG Tab.CR PO SCH (11:34)
--- NOTE | 2020-02-23 11:37 | PN ---
DATE OF SERVICE: 02/23/2020 SUBJECTIVE: Myrtle is postoperative day #1. She states her pain is controlled. Vital signs have been stable. She has been up, ambulating. Oral intake 690. Urine output 525. JAME drains put out 135 and 70 of a light red drainage. REVIEW OF SYSTEMS: Remainder of review of systems negative for any pertinent positives and negatives. OBJECTIVE: GENERAL: Myrtle Estes is a pleasant 44-year-old female. VITAL SIGNS: TPR at 0700, 97.8; 56; 16; blood pressure 138/83. HEENT: Negative. NECK: Supple. HEART: Regular rate and rhythm. LUNGS: Clear. ABDOMEN: Dressings dry and intact. Abdominal binder is on. EXTREMITIES: Without peripheral edema. ASSESSMENT: 1. Exploratory laparotomy with lysis of adhesions. a. Total gastrectomy with Cande-en-Y reconstruction. b. Partial left hepatic lobectomy removing a portion of the liver adherent to gastric fundus. c. Small bowel resection. d. Secondary enterostomy to restore Cande-en-Y bowel anatomy. e. Reduction of small bowel volvulus and closure of internal hernia. f. Right ovarian cystectomy. g. Placement of Interceed mesh. POSTOPERATIVE DIAGNOSES: 1. Chronic abdominal pain with: a. Thickened bypass stomach with dorsum adhesion to fundus to retroperitoneum adjacent to spleen to left lobe of liver. b. Focal small bowel volvulus with narrowing of preexisting jejunojejunostomy. c. Right ovarian cyst. d. Date of surgery: 02/22/2020. Surgeon: Aryan Jones MD. PLAN: 1. May shower. 2. Discontinue Ruiz catheter. 3. Step 2 gastric bypass diet with cereal. 4. Decrease IV of D5LR to 100 mL per hour. 5. Zofran ODT 4 mg q.4 hours p.r.n. nausea. 6. Good pulmonary toilet. 7. We will evaluate p.r.n. or in a.m. Galina Bolden PA-C /[id number]
[2020-02-23] MEDS ORDERED: Levothyroxine 100 MCG Tab PO SCH (11:42)
[2020-02-23] MEDS: Citalopram 20 MG Tab PO SCH (12:53)
--- NOTE | 2020-02-23 14:15 | CR ---
UGI Limited HISTORY: Postbariatric surgery FINDINGS: Patient swallowed water-soluble contrast. Upright views of the abdomen show no evidence of extravasation or obstruction. IMPRESSION: Status post bariatric surgery No extravasation or obstruction seen
[2020-02-23] MEDS ORDERED: MVI, Adult with Vitamin K 10 ML, Thiamine 200 MG, Chromium/Copper/Mang/Selen/Zn 1 ML in... IV SCH ×4 (16:00)
[2020-02-24] MEDS: Dextrose 5%-Lactated Ringers 1,000 ML IV SCH (03:19)
[2020-02-24] MEDS: HYDROmorphone/Normal Saline 15 MG/30 ML PCA IV PRN (03:40)
[2020-02-24] MEDS: Acetaminophen 500 MG Tab PO SCH ×3 (05:02→21:24)
[2020-02-24] MEDS: Celecoxib 200 MG Cap PO SCH ×2 (08:01→20:10)
[2020-02-24] MEDS: Pantoprazole 40 MG Tab.CR PO SCH (08:01)
[2020-02-24] MEDS: Heparin Sodium 5,000 Units/ML Vial SUBCUT SCH ×2 (08:01→20:11)
[2020-02-24] MEDS: Citalopram 20 MG Tab PO SCH (08:01)
[2020-02-24] MEDS: SCOPOLAMINE PATCH CHECK TOP SCH (08:02)
[2020-02-24] MEDS: Gabapentin 250 MG/5 ML Solution ML 470 ML Bottle PO SCH ×3 (08:02→20:11)
[2020-02-24] MEDS ORDERED: Sodium Chloride 0.9% 10 ML Syringe IV PRN (08:11)
[2020-02-24] MEDS ORDERED: Cyanocobalamin (Vitamin B12) 1,000 MCG/ML SDV IM ONE (09:00)
[2020-02-24] MEDS: Bisacodyl 5 MG Tab PO SCH ×2 (10:06→20:11)
[2020-02-24] MEDS: Docusate Sodium 100 MG Cap PO SCH ×2 (10:07→20:11)
[2020-02-24] MEDS: HYDROmorphone 2 MG Tab PO PRN ×4 (10:24→20:10)
[2020-02-24] MEDS: Cyclobenzaprine 10 MG Tab PO PRN (20:21)
[2020-02-25] MEDS: Acetaminophen 500 MG Tab PO PRN ×2 (01:05→11:09)
[2020-02-25] MEDS: Acetaminophen 500 MG Tab PO SCH (05:06)
[2020-02-25] MEDS: Pantoprazole 40 MG Tab.CR PO SCH (07:53)
[2020-02-25 09:04] VITALS: BP 141/84; PULSE 71
[2020-02-25] MEDS: Cyclobenzaprine 10 MG Tab PO PRN (09:05)
[2020-02-25] MEDS: HYDROmorphone 2 MG Tab PO PRN (09:05)
[2020-02-25] MEDS: Citalopram 20 MG Tab PO SCH (09:06)
[2020-02-25] MEDS: Celecoxib 200 MG Cap PO SCH (09:06)
[2020-02-25] MEDS: Docusate Sodium 100 MG Cap PO SCH (09:06)
[2020-02-25] MEDS: Bisacodyl 5 MG Tab PO SCH (09:07)
[2020-02-25] MEDS: Heparin Sodium 5,000 Units/ML Vial SUBCUT SCH (09:07)
[2020-02-25] MEDS: Gabapentin 250 MG/5 ML Solution ML 470 ML Bottle PO SCH (09:12)
--- NOTE | 2020-02-26 14:01 | PN ---
DATE OF SERVICE: 02/24/2020 The patient has been afebrile with stable vital signs. Oral intake has been fairly good. We will continue with the diet today and moving her up to step 3 diet. JAME drain will come out and we will saline lock the IV and we will oral pain medication and add some bowel stimulation. She will probably be ready for discharge home tomorrow. Aryan Jones MD /[id number]
--- NOTE | 2020-02-26 14:04 | PN ---
DATE OF SERVICE: 02/21/2020 The patient underwent an upper endoscopy this morning, which showed closure of Cande-en-Y gastric bypass, all appeared to be normal. Given this in search of her cause for chronic upper abdominal pain, we obtained an upper GI x-ray with small-bowel follow-through. There appeared to be no significant obstructive findings on that. We did review the CT scan of the abdomen which suggested some thickening of the gastric wall. On review by our in-house radiologist, Dr. Griffith, this bypassed portion of the stomach was distinctly thickened in a diffuse manner indicating probable ongoing gastritis in that area. Given this and no other obvious causes of the patient's discomfort and that this finding would also be quite consistent with the patient's presentation, the plan will be to proceed with exploratory laparotomy tomorrow and plan removal of the bypassed portion of the stomach. The intraabdominal area will be thoroughly evaluated possible causes that might be identified intraoperatively. Potential risks of procedure including bleeding, infection, leaks from various GI tract closures, and possibility of persistent pain postoperatively were all reviewed, and the patient wishes to proceed. The surgery will be scheduled for tomorrow. Aryan Jones MD /[id number]
--- NOTE | 2020-02-26 15:19 | OR ---
DATE OF PROCEDURE: 02/22/2020 SURGEON: Aryan Jones MD PREOPERATIVE DIAGNOSIS: Upper abdominal pain associated with diffusely thickened bypassed stomach. POSTOPERATIVE DIAGNOSES: 1. Chronic abdominal pain associated with a thickened bypassed stomach with marked inflammatory adherence of gastric fundus to retroperitoneum adjacent to upper pole of spleen and adjacent to left lobe of liver. 2. Focal small bowel volvulus with narrowing of preexisting jejunojejunostomy. 3. Right ovarian cyst. OPERATIVE PROCEDURES: Exploratory laparotomy with lysis of adhesions and: 1. Total gastrectomy with Cande-en-Y reconstruction (82240). 2. Partial left hepatic lobectomy removing a portion of liver adherent to an inflammatory focus at gastric fundus (41325). 3. Small bowel resection (58838). 4. Secondary enteroenterostomy for mandaeism of small bowel Cande-en-Y anatomy (12004). 5. Reduction of small bowel volvulus and closure of internal hernia (18978). 6. Right ovarian cystectomy (51924). 7. Placement of Interceed mesh to limit recurrent adhesion formation between pelvic and abdominal wall and underlying viscera (07042). ANESTHESIA: General. DAIRY SPECIALIST: Galina Bolden PA-C INDICATIONS FOR PROCEDURE: This is a 44-year-old status post Cande-en-Y gastric bypass with revision for closure of gastrogastric fistula in October 2019. Over the last few weeks, she has had progressive ongoing upper abdominal pain. Upper endoscopy done yesterday showed the Cande-en-Y anatomy to be uncomplicated in appearance. A CT scan was obtained which showed a diffusely thickened stomach indicating minimum of chronic gastritis likely associated with at least part of her symptoms. After discussion of treatment options, plan will be to proceed with exploratory laparotomy and resection of the remaining bypassed stomach with maintenance of Cande-en-Y reconstruction. We will do a general exploration and revise any areas that might appear to be at all problematic so as to minimize chances of remaining postoperative discomfort. Potential risks of the procedure including bleeding, infection, injury to underlying viscera, leaks from any GI tract closures, possibility of persistent pain postoperatively were all gone over, and the patient wishes to proceed. DETAILS OF PROCEDURE: The patient was taken to the operating room and placed in a supine position. After general endotracheal anesthesia was induced, a Ruiz catheter was inserted, and the abdomen prepped and draped. Another midline incision from the xiphoid 2 to 3 fingerbreadths above the umbilicus was made and carried down through the skin and subcutaneous tissue and into the peritoneal cavity. Some scattered adhesions between the small and large bowel as well as omentum and the anterior abdominal wall and pelvic wall were then taken down with blunt and sharp dissection. At this point, the patient was noted to have a right ovarian cyst roughly the size of a ping- pong ball. At age of 44, she appeared to have had the left ovary removed. Given this, we excised the cyst but left a good portion of the ovary so as to avoid immediate postmenopausal status. This cyst was excised by means of a LUMA stapler and delivered from the field. Examination of the stomach showed, as expected, this to be diffusely thickened. This appeared to be palpably quite thickened also in the area of the antrum especially. On subsequent dissection, however, the patient was noted to have striking inflammatory change in the tip of the fundus where it lay up against the upper pole of the spleen, adjacent to the retroperitoneum and liver. The liver was densely adherent to this portion of the gastric fundus as well, implying area of either present or past problems with inflammation such as ulceration in that area. This confirmed the need to proceed with a resection of the remaining bypassed stomach. Initially, the lesser and greater omentum were divided with the LUMA staplers, beginning in the mid body of the stomach. These initially were directed distally and continued down to the proximal duodenum. Once the proximal duodenum was cleared of the omental attachments, the duodenum was divided with a curved LUMA black load. That staple line appeared to be satisfactory. At this point, further dissection of the bypassed stomach continued on the greater curvature up to and through the short gastric vessels. As one palpated in that area of the tip of the gastric fundus, more or less at the junction of the tip of the spleen, adjacent liver and retroperitoneum, there was a firm inflammatory mass present. This was somewhat adherent to the gastrojejunostomy, and at this point, the lesser curvature attachments were taken down. An Tuyet tube had been placed per Anesthesia orally across the esophagus, and the previous gastric ulcer and gastrojejunostomy portion of this was resected, along with the stomach, but with the Tuyet tube, adequate luminal diameter was obviously being maintained. With multiple LUMA firings, initially the gastric fundus was divided, leaving the tip of the fundus as a separate entity. Remainder portion of the stomach was delivered from the field. Careful dissection so as to avoid splenic injury was then continued, and eventually the tip of the fundus, which was involved in the inflammatory response, was from the liver and retroperitoneal attachments and delivered from the field. The area of liver which had been attached to that area was devascularized, and a partial left hepatic lobectomy was then completed with LUMA casandra and that was also sent as a separate specimen. The Cande-en-Y anastomosis, which was essentially flush with the esophagogastric junction at this point, was then reconstructed with some additional 3-0 Vicryl sutures and oversewn then with seromuscular stitches as well, then reinforced with omentum, thus completing the mandaeism of the Cande-en-Y reconstruction. Examination of the small bowel at this point showed a fairly distended biliopancreatic limb. Leaving this area with what appeared to be being fairly involved in at least the partial obstruction would put the duodenal stump at risk for a leak, and given this, as well as to be sure of alleviating any possible causes of the patient's abdominal pain, the jejunojejunostomy was resected with 3 components being divided with LUMA casandra. Initial GI tract continuity was established with [id number] enteroenterostomy between what had been the distal-most biliopancreatic limb to the proximal-most common limb with internal firing of the Endo-LUMA 60 mm stapler. Common opening was then closed transversely with the same stapler. Angles of anastomosis were reinforced with some 3-0 Vicryl stitch and the mesentery closed with 2-0 silk stitch. Of note, prior to the resection, the patient was noted to have a focal area of volvulus of the biliopancreatic limb underneath the Cande limb, and that area had been reduced at that point. GI tract continuity was then re-established with anastomosis of the Cande limb to the small bowel roughly 20 cm distal to the first anastomosis with the same sequence of casandra, as well as midportion of the angles of anastomosis and closure of the mesenteric defect, with the latter being with 2-0 silk once again to provide some permanency to that closure. At this point, no further problems were noted and the abdomen irrigated with antibiotic-containing saline solution. Two Reggie- Frost drains were placed, one on the left side placed up against the newly reconstructed gastrojejunostomy and from there into the splenic fossa and second one on the right side taken across the duodenal stump. The duodenal stump was also reinforced with some fibrin sealant, as was the newly reconstructed gastrojejunostomy. The patient had Interceed mesh then placed underneath the incision and from there down toward the pelvis so as to limit recurrent adhesion formation between the abdominal and pelvic surfaces and the underlying viscera. The midline fascia was then approximated with #2 Vicryl stitch, subcutaneous tissue with 2 layers of 3-0 and 4-0 Vicryl stitch, and the skin with casandra. Drains were affixed to the skin with some 4-0 Vicryl stitch, and the patient was taken to the recovery room in satisfactory condition. There were no evident complications. Physician assistant business manager, Galina Bolden, played an essential role in assisting in this case, helping to position the patient, retract structures as needed, as well as suturing and cutting sutures when indicated. Her presence improved patient safety and decreased operative time. Aryan Jones MD /[id number]
--- NOTE | 2020-02-27 09:54 | DISCH ---
FINAL DIAGNOSES: 1. Chronic abdominal pain associated with thickened stomach with dense adhesion of gastric fundus to retroperitoneum adjacent to spleen and left lobe of liver. 2. 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 3. Right ovarian cyst. 4. Bariatric surgery status. 5. History of inflammatory bowel disease. 6. Dysfunctional uterine bleeding. 7. Treated hypothyroidism. OPERATIVE PROCEDURES: 1. On 02/21/20, upper gastrointestinal endoscopy. 2. On 02/22/20, exploratory laparotomy with lysis of adhesions: a. Total gastrectomy with Cande-en-Y reconstruction. b. Partial left hepatic lobectomy, removing a portion of the liver adherent to gastric fundus. c. Small-bowel resection. d. Secondary enteroenterostomy to restore Cande-en-Y small-bowel anatomy. e. Reduction of small-bowel volvulus and closure of internal hernia. f. Right ovarian cystectomy. g. Placement of Interceed mesh to limit recurrent adhesion formation. SUMMARY: This is a 44-year-old presenting with some ongoing problems with abdominal pain. She is status post a revisional procedure in October and now comes back with some ongoing abdominal pain. Initially after admission, the patient underwent an upper GI endoscopy, which was normal in terms of the present Cande-en-Y anatomy. A separate CT scan was obtained which showed a strikingly diffusely thickened stomach and this was felt to likely be accounting for the patient's discomfort. Following this, the patient underwent exploratory laparotomy. A thickened stomach was noted, and in addition to this, in the tip of the gastric fundus adjacent to the upper pole of the spleen and adjacent retroperitoneum and the liver, there was a very dense masslike fixation of the gastric fundus about that area, probably consistent with some old ulcer disease with inflammatory changes. This was resected along with some of the adjacent left lobe of the liver, and the patient otherwise underwent total gastrectomy with reconstruction. The enteroenterostomy was involved with some volvulus, and this was indeed torsed and was felt to be narrowed. The jejunojejunostomy was therefore revised as well, and she had a small ovarian cyst which was removed concurrently. Postoperatively, she has had the expected pain associated with the excision, but is feeling better from a general GI tract standpoint. She will be discharged home on her usual medications plus Dilaudid 2 mg p.o. q.4 hours p.r.n. pain #42, Flexeril 10 mg p.o. t.i.d. p.r.n. muscle spasms #20, refill x1, and Celebrex 200 mg p.o. b.i.d. for two weeks, #28. Followup will be with Galina Bolden at [facility] on 03/04/2020, at 9:00 a.m. She should be on step 3 diet until that first appointment.
== END 2020-02-25 12:30 | disposition home or self-care (01) | DRG 328 ==
LOC: JP.ED 19:20 → JP.MS 21:22 → UNDOADMIN 21:22 → OBSVTOIN 02-22 12:50 → UNDODISIN 02-25 12:30
PROVIDERS: ADMIT Surgery; ATTEND Surgery
PROC: 0DB68ZX Excision of Stomach, Via Natural or Artificial Opening Endoscopic, Diagnostic (ICD-10-PCS; 2020-02-21)
PROC: 0D160ZA Bypass Stomach to Jejunum, Open Approach (ICD-10-PCS; principal; 2020-02-22)
PROC: 0DB60ZZ Excision of Stomach, Open Approach (ICD-10-PCS; 2020-02-22)
PROC: 0FB20ZZ Excision of Left Lobe Liver, Open Approach (ICD-10-PCS; 2020-02-22)
PROC: 0DB80ZZ Excision of Small Intestine, Open Approach (ICD-10-PCS; 2020-02-22)
PROC: 0DS80ZZ Reposition Small Intestine, Open Approach (ICD-10-PCS; 2020-02-22)
PROC: 3E0M05Z Introduction of Adhesion Barrier into Peritoneal Cavity, Open Approach (ICD-10-PCS; 2020-02-22)
DX: K56.2 Volvulus (principal); N83.201 Unspecified ovarian cyst, right side; N93.8 Other specified abnormal uterine and vaginal bleeding; E03.9 Hypothyroidism, unspecified; K66.0 Peritoneal adhesions (postprocedural) (postinfection); K59.09 Other constipation; G43.909 Migraine, unspecified, not intractable, without status migrainosus; F32.9 Major depressive disorder, single episode, unspecified; K52.9 Noninfective gastroenteritis and colitis, unspecified; D50.9 Iron deficiency anemia, unspecified; E53.8 Deficiency of other specified B group vitamins; E66.01 Morbid (severe) obesity due to excess calories; Z68.35 Body mass index [BMI] 35.0-35.9, adult; Z79.890 Hormone replacement therapy; Z90.49 Acquired absence of other specified parts of digestive tract; Z90.710 Acquired absence of both cervix and uterus; Z90.89 Acquired absence of other organs; Z98.51 Tubal ligation status; Z98.84 Bariatric surgery status
CPT/HCPCS: 36415; 74177; 74240; 74240-26; 80053; 82607; 82728; 82746; 83605; 83690; 83735; 84100; 85025; 87081; 93005; 94762; 96361; 96374; 96375; 99284; 99285-25; A9270-GY; C9113; J0131; J0171; J0330; J0694; J1100; J1170; J1644; J2175; J2185; J2250; J2270; J2405; J2704; J2710; J2795; J3010; J3410; J3411; J3420; J3475; J3490; J7050; J7120; J7121; Q9967

== ENCOUNTER 2020-03-13 17:52 | Emergency (ER) | payer MEDICAID ==
--- NOTE | 2020-03-13 19:12 | EDM.PDOC ---
ED HPI GENERAL MEDICAL PROBLEM - General Chief Complaint: Abdominal Pain Stated Complaint: POST SURGERY PAIN Time Seen by Provider: 03/13/20 19:02 Source of Information: Reports: Patient, RN Notes Reviewed History Limitations: Reports: No Limitations - History of Present Illness INITIAL COMMENTS - FREE TEXT/NARRATIVE: 44-year-old female presents emergency department today with complaint of shortness of breath and chest pain but only with a deep breath, she does admit that she does get short of breath with exertion. Recently had surgery about a month ago does have a history of gastric bypass has been doing well except for the last 3 to 4 days when this pain developed and it has progressively gotten worse. Denies any fevers no trouble with bowel movements no nausea or vomiting - Related Data Allergies Allergy/AdvReac Type Severity Reaction Status Date / Time No Known Allergies Allergy Verified 03/13/20 18:51 Home Meds: Home Meds Cyanocobalamin (Vitamin B-12) [Vitamin B-12] 2,500 mcg SL DAILY 02/16/14 [ History] Cholecalciferol (Vitamin D3) [Vitamin D3] 5,000 unit PO DAILY 12/12/16 [History] Citalopram [Citalopram HBr] 20 mg PO DAILY 12/12/16 [History] Levothyroxine 175 mcg PO ACBREAKFAST 12/12/16 [History] Calcium Citrate/Vitamin D3 [Calcium Citrate + D] 1 tab PO DAILY 06/14/17 [ History] Multivitamin with Minerals [Multiple Vitamin] 1 tab PO BID 06/14/17 [History] Vitamin B Complex [B Complex] 1 tab PO DAILY 06/14/17 [History] Pantoprazole [ProTONIX] 40 mg PO DAILY 08/03/19 [History] Sucralfate [Carafate] 1 gm PO TIDAC #30 cup 02/06/20 [Rx] Ondansetron [Ondansetron ODT] 4 mg PO ASDIRECTED 03/13/20 [History] Past Medical History HEENT History: Reports: Impaired Vision Gastrointestinal History: Reports: Chronic Constipation, Chronic Diarrhea, Inflammatory Bowel Disease, Other (See Below) Other Gastrointestinal History: colitis. gastrogastric fistula [employer] History: Reports: Dysfunctional Uterine Bleeding, Musculoskeletal History: Reports: Fracture Other Musculoskeletal History: foot Neurological History: Reports: Migraines Psychiatric History: Reports: Depression Endocrine/Metabolic History: Reports: Hypothyroidism, Obesity/BMI 30+ Hematologic History: Reports: Anemia, B12 Deficiency, Iron Deficiency - Infectious Disease History Infectious Disease History: Reports: Chicken Pox - Past Surgical History HEENT Surgical History: Reports: Adenoidectomy, Oral Surgery, Tonsillectomy GI Surgical History: Reports: Appendectomy, Bariatric Procedure, Cholecystectomy , Colonoscopy, EGD Other GI Surgeries/Procedures: reversal of RNY with repair of fistula. revision October 2019. 02/22/2020 abdominal surgery Female Surgical History: Reports: Hysterectomy Social & Family History - Family History Family Medical History: Noncontributory Cardiac: Reports: [place] GI: Reports: None Musculoskeletal: Reports: Arthritis, RA Oncologic: Reports: Skin - Tobacco Use Smoking Status *Q: Never Smoker Second Hand Smoke Exposure: No - Caffeine Use Caffeine Use: Reports: None - Recreational Drug Use Recreational Drug Use: No ED ROS GENERAL - Review of Systems Review Of Systems: See Below Constitutional: Denies: Fever, Chills HEENT: Reports: No Symptoms Respiratory: Reports: Shortness of Breath (Only with a deep breath) Cardiovascular: Reports: Dyspnea on Exertion GI/Abdominal: Reports: No Symptoms : Reports: No Symptoms Musculoskeletal: Reports: No Symptoms ED EXAM, GENERAL - Physical Exam Exam: See Below Exam Limited By: No Limitations General Appearance: Alert, WD/WN, No Apparent Distress Neck: Normal Inspection, Supple, Non-Tender, Full Range of Motion Respiratory/Chest: No Respiratory Distress, Lungs Clear, Normal Breath Sounds, No Accessory Muscle Use, Chest Non-Tender Cardiovascular: Regular Rate, Rhythm, No Murmur GI/Abdominal: Normal Bowel Sounds, Soft, Non-Tender Course - Vital Signs Last Recorded V/S: Last Vital Signs Temp 97.0 F 03/13/20 18:53 Pulse 75 03/13/20 21:41 Resp 14 03/13/20 18:53 BP 126/70 03/13/20 21:41 Pulse Ox 96 03/13/20 19:55 - Orders/Labs/Meds Orders: Active Orders 24 hr Category Date Time Status Cardiac Monitoring [RC] .As Directed Care 03/13/20 19:06 Active EKG Documentation Completion [RC] ASDIRECTED Care 03/13/20 19:07 Active Peripheral IV Care [RC] . DIRECTED Care 03/13/20 20:29 Active Chest 2V [CR] Stat Exams 03/13/20 19:07 Taken Iopamidol [Isovue-370 (76%)] Med 03/13/20 20:45 Active 100 ml IV . DIRECTED Sodium Chloride 0.9% [Normal Saline] 1,000 ml Med 03/13/20 20:30 Active IV ASDIRECTED Sodium Chloride 0.9% [Normal Saline] 100 ml Med 03/13/20 20:45 Active IV ASDIRECTED Sodium Chloride 0.9% [Saline Flush] Med 03/13/20 20:28 Active 10 ml FLUSH ASDIRECTED PRN Peripheral IV Insertion Adult [OM.PC] Urgent Oth 03/13/20 20:28 Ordered EKG 12 Lead [EK] Stat Ther 03/13/20 19:07 Ordered Medication Orders Sodium Chloride (Normal Saline) 1,000 mls @ 500 mls/hr IV ASDIRECTED DELILAH Last Admin: 03/13/20 21:03 Dose: 500 mls/hr Sodium Chloride (Normal Saline) 100 mls @ 3 mls/sec IV ASDIRECTED DELILAH Last Admin: 03/13/20 20:51 Dose: 3 mls/sec Iopamidol (Isovue-370 (76%)) 100 ml IV . DIRECTED DELILAH Last Admin: 03/13/20 20:51 Dose: 100 ml Sodium Chloride (Saline Flush) 10 ml FLUSH ASDIRECTED PRN PRN Reason: Keep Vein Open Last Admin: 03/13/20 20:51 Dose: 10 ml Labs: Laboratory Tests 03/13/20 03/13/20 03/13/20 Range/Units 19:26 19:26 19:26 WBC 9.8 (4.5-11.0) K/uL RBC 3.45 (3.30-5.50) M/uL Hgb 9.5 L (12.0-15.0) g/dL Hct 30.1 L (36.0-48.0) % MCV 87 (80-98) fL MCH 28 (27-31) pg MCHC 32 (32-36) % Plt Count 388 (150-400) K/uL Neut % (Auto) 67 H (36-66) % Lymph % (Auto) 17 L (24-44) % [place] % (Auto) 14 H (2-6) % Eos % (Auto) 1 L (2-4) % Baso % (Auto) 1 (0-1) % D-Dimer, Quantitative 2080 H (0.0-400.0) ng/mL Sodium 138 L (140-148) mmol/L Potassium 3.9 (3.6-5.2) mmol/L Chloride 101 (100-108) mmol/L Carbon Dioxide 29 (21-32) mmol/L Anion Gap 11.9 (5.0-14.0) mmol/L BUN 11 D (7-18) mg/dL Creatinine 0.7 (0.6-1.0) mg/dL Est Cr Clr Drug Dosing 100.77 mL/min Estimated GFR (MDRD) > 60 (>60) Glucose 87 (74-106) mg/dL Lactic Acid (0.4-2.0) mmol/L Calcium 8.2 L (8.5-10.1) mg/dL Total Bilirubin 0.6 (0.2-1.0) mg/dL AST 17 D (15-37) U/L ALT 21 D (12-78) U/L Alkaline Phosphatase 94 (46-116) U/L Troponin I < 0.017 (0.000-0.056) ng/mL Total Protein 6.6 (6.4-8.2) g/dL Albumin 2.3 L (3.4-5.0) g/dL Globulin 4.3 H (2.3-3.5) g/dL Albumin/Globulin Ratio 0.5 L (1.2-2.2) 03/13/ Range/Units 19:26 WBC (4.5-11.0) K/uL RBC (3.30-5.50) M/uL Hgb (12.0-15.0) g/dL Hct (36.0-48.0) % MCV (80-98) fL MCH (27-31) pg MCHC (32-36) % Plt Count (150-400) K/uL Neut % (Auto) (36-66) % Lymph % (Auto) (24-44) % [place] % (Auto) (2-6) % Eos % (Auto) (2-4) % Baso % (Auto) (0-1) % D-Dimer, Quantitative (0.0-400.0) ng/mL Sodium (140-148) mmol/L Potassium (3.6-5.2) mmol/L Chloride (100-108) mmol/L Carbon Dioxide (21-32) mmol/L Anion Gap (5.0-14.0) mmol/L BUN (7-18) mg/dL Creatinine (0.6-1.0) mg/dL Est Cr Clr Drug Dosing mL/min Estimated GFR (MDRD) (>60) Glucose (74-106) mg/dL Lactic Acid 1.0 (0.4-2.0) mmol/L Calcium (8.5-10.1) mg/dL Total Bilirubin (0.2-1.0) mg/dL AST (15-37) U/L ALT (12-78) U/L Alkaline Phosphatase (46-116) U/L Troponin I (0.000-0.056) ng/mL Total Protein (6.4-8.2) g/dL Albumin (3.4-5.0) g/dL Globulin (2.3-3.5) g/dL Albumin/Globulin Ratio (1.2-2.2) Meds: Medications Generic Name Dose Route Start Last Admin Trade Name Freq PRN Reason Stop Dose Admin Sodium Chloride 1,000 mls @ 500 mls/hr 03/13/20 20:30 03/13/20 21:03 Normal Saline IV 500 mls/hr ASDIRECTED DELILAH Administration Sodium Chloride 100 mls @ 3 mls/sec 03/13/20 20:45 03/13/20 20:51 Normal Saline IV 3 mls/sec ASDIRECTED DELILAH Administration Iopamidol 100 ml 03/13/20 20:45 03/13/20 20:51 Isovue-370 (76%) IV 100 ml . DIRECTED DELILAH Administration Sodium Chloride 10 ml 03/13/20 20:28 03/13/20 20:51 Saline Flush FLUSH 10 ml ASDIRECTED PRN Administration Keep Vein Open Departure - Departure Time of Disposition: 22:05 Disposition: Home, Self-Care 01 Condition: Fair Clinical Impression: Atypical chest pain Instructions: Nonspecific Chest Pain, Adult, [id number] Referrals: Yolande Sweeney MD [Primary Care Provider] - Forms: ED Department Discharge Additional Instructions: Use Tylenol as needed for pain control, please follow-up with Dr. Jones's group next week for further evaluation call or return to the emergency department worsening of symptoms Sepsis Event Note - Evaluation Sepsis Screening Result: No Definite Risk - Focused Exam Vital Signs: Vital Signs Temp Pulse Resp BP Pulse Ox 03/13/20 21:41 75 126/70 03/13/20 21:00 69 127/81 03/13/20 19:55 60 127/74 96 03/13/20 18:53 97.0 F 73 14 120/78 97 03/13/20 18:15 97.0 F 72 16 122/80 97 Date Exam was Performed: 03/13/20 Time Exam was Performed: 22:04 - My Orders Last 24 Hours: My Active Orders 03/13/20 19:06 Cardiac Monitoring [RC] .As Directed 03/13/20 19:07 EKG Documentation Completion [RC] ASDIRECTED Chest 2V [CR] Stat EKG 12 Lead [EK] Stat 03/13/20 20:28 Sodium Chloride 0.9% [Saline Flush] 10 ml FLUSH ASDIRECTED PRN Peripheral IV Insertion Adult [OM.PC] Urgent 03/13/20 20:29 Peripheral IV Care [RC] . DIRECTED 03/13/20 20:30 Sodium Chloride 0.9% [Normal Saline] 1,000 ml IV ASDIRECTED 03/13/20 20:45 Iopamidol [Isovue-370 (76%)] 100 ml IV . DIRECTED Sodium Chloride 0.9% [Normal Saline] 100 ml IV ASDIRECTED - Assessment/Plan Last 24 Hours: My Active Orders 03/13/20 19:06 Cardiac Monitoring [RC] .As Directed 03/13/20 19:07 EKG Documentation Completion [RC] ASDIRECTED Chest 2V [CR] Stat EKG 12 Lead [EK] Stat 03/13/20 20:28 Sodium Chloride 0.9% [Saline Flush] 10 ml FLUSH ASDIRECTED PRN Peripheral IV Insertion Adult [OM.PC] Urgent 03/13/20 20:29 Peripheral IV Care [RC] . DIRECTED 03/13/20 20:30 Sodium Chloride 0.9% [Normal Saline] 1,000 ml IV ASDIRECTED 03/13/20 20:45 Iopamidol [Isovue-370 (76%)] 100 ml IV . DIRECTED Sodium Chloride 0.9% [Normal Saline] 100 ml IV ASDIRECTED Plan: Assessment Acuity = acute Site and laterality = atypical chest pain Etiology = unknown Manifestations = none Location of injury = Home Lab values = CBC, CMP unremarkable d-dimer was elevated around [address] scan of the chest shows no pulmonary embolism Plan Call discussed case with Dr. Jones at 2200 recommended Tylenol as needed for pain control follow-up with him in clinic next week This note was dictated using [employer] voice recognition software please call with any questions on syntax or grammar.
[2020-03-13] MEDS ORDERED: Sodium Chloride 0.9% 10 ML Syringe FLUSH PRN (20:28)
[2020-03-13] MEDS ORDERED: Sodium Chloride 0.9% 1,000 ML IV SCH (20:30)
[2020-03-13] MEDS ORDERED: Sodium Chloride 0.9% 100 ML IV SCH (20:45)
[2020-03-13] MEDS ORDERED: Iopamidol 755 Mg/ML 100 ML Bottle IV SCH (20:45)
[2020-03-13 21:42] VITALS: BP 126/70; PULSE 75
--- NOTE | 2020-03-14 06:55 | CRLCT ---
Final Report: INDICATION: Chest pain with deep inspiration. Left-sided pain. Elevated D-dimer. Recent surgery. COMPARISON: CT of the abdomen and pelvis from 02/20/2020 TECHNIQUE: CT examination of the chest was performed with the uneventful intravenous administration of 100 cc of Isovue 370 while 2 mm thick axial sections were obtained through the pulmonary arteries. Please note that all CT scans at this facility use dose modulation, iterative reconstruction, and/or weight-based dosing when appropriate to reduce radiation dose to as low as reasonably achievable. FINDINGS: : There is no sign of pulmonary embolism, with normal enhancement and branching of the pulmonary arteries. The lungs are clear with no sign of significant infiltrate or mass. There is no sign of mediastinal or hilar mass or adenopathy. The heart is normal in appearance for the patient`s age, as are the aorta and other ascending great vessels. There is no sign of supraclavicular or axillary mass or adenopathy. The visualized superior liver, spleen, pancreas, left kidney, and adrenals are normal in appearance. Again seen are changes of gastric bypass surgery with several lines of casandra in the gastric fundus. The osseous structures are normal in appearance for the patient`s age. IMPRESSION: No sign of pulmonary embolism. Normal CT of the chest with contrast. Again seen are changes of gastric bypass surgery. Please note that all CT scans at this facility use dose modulation, iterative reconstruction, and/or weight-based dosing when appropriate to reduce radiation dose to as low as reasonably achievable. Dictated by Bi Jack MD @ Mar 13 2020 9:35PM Signed by: Bi Jack MD @03/13/2020 9:42:55 PM (Electronic Signature) MTDD
--- NOTE | 2020-03-14 11:06 | CR ---
CHEST: 2 view CLINICAL HISTORY:Chest pain COMPARISON:None FINDINGS: The heart size, pulmonary vascularity and hilar structures are normal. No infiltrate effusion or pneumothorax is seen. IMPRESSION: No acute cardiopulmonary process.
== END 2020-03-13 22:15 | disposition home or self-care (01) ==
LOC: JP.ED 17:52
DX: R07.89 Other chest pain (principal); F32.9 Major depressive disorder, single episode, unspecified; E03.9 Hypothyroidism, unspecified; E66.9 Obesity, unspecified; Z68.33 Body mass index [BMI] 33.0-33.9, adult; Z79.899 Other long term (current) drug therapy
CPT/HCPCS: 36415; 71046; 71046-26; 71275; 80053; 83605; 84484; 85025; 85379; 93005; 93010; 96360; 96361; 99283; 99285-25; J7030; J7050; Q9967

== ENCOUNTER 2020-03-18 15:55 | Inpatient (IN) | payer MEDICAID ==
--- NOTE | 2020-03-18 16:29 | EDM.PDOC ---
ED HPI GENERAL MEDICAL PROBLEM - General Chief Complaint: Fever Stated Complaint: FEVER Time Seen by Provider: 03/18/20 16:15 Source of Information: Reports: Patient History Limitations: Reports: No Limitations - History of Present Illness INITIAL COMMENTS - FREE TEXT/NARRATIVE: 44-year-old female who had a fairly complicated abdominal surgery 3 and half weeks ago has been running a fairly persistent fever over the past 2 weeks. She also has had some intermittent left upper quadrant pain and pleuritic pain with breathing. She had a fairly complete work-up done a week ago in the emergency room including a chest CT to rule out pulmonary emboli or pneumonia. She has not been on antibiotics, she does have some decreased appetite but denies abdominal pain currently. No urinary symptoms such as dysuria or increased frequency. Denies back pain. Her fever was persistent today so came back into the emergency room to be rechecked. Onset: Unknown/Unsure (Symptoms have been ongoing for at least 2 weeks) Location: Reports: Abdomen (Some intermittent left upper abdominal pain) Associated Symptoms: Reports: Fever/Chills, Loss of Appetite, Malaise. Denies: Confusion, Chest Pain, Diaphoresis, Nausea/Vomiting, Shortness of Breath, Weakness Headache Pain Score (Numeric/FACES): 8 - Related Data Allergies Allergy/AdvReac Type Severity Reaction Status Date / Time No Known Allergies Allergy Verified 03/13/20 18:51 Home Meds: Home Meds Cyanocobalamin (Vitamin B-12) [Vitamin B-12] 2,500 mcg SL DAILY 02/16/14 [ History] Cholecalciferol (Vitamin D3) [Vitamin D3] 5,000 unit PO DAILY 12/12/16 [History] Citalopram [Citalopram HBr] 20 mg PO DAILY 12/12/16 [History] Levothyroxine 175 mcg PO ACBREAKFAST 12/12/16 [History] Calcium Citrate/Vitamin D3 [Calcium Citrate + D] 1 tab PO DAILY 06/14/17 [ History] Multivitamin with Minerals [Multiple Vitamin] 1 tab PO BID 06/14/17 [History] Vitamin B Complex [B Complex] 1 tab PO DAILY 06/14/17 [History] Pantoprazole [ProTONIX] 40 mg PO DAILY 08/03/19 [History] Sucralfate [Carafate] 1 gm PO TIDAC #30 cup 02/06/20 [Rx] Ondansetron [Ondansetron ODT] 4 mg PO ASDIRECTED 03/13/20 [History] Acetaminophen [Tylenol Extra Strength] 500 mg PO ASDIRECTED PRN 03/18/20 [ History] Past Medical History HEENT History: Reports: Impaired Vision Gastrointestinal History: Reports: Chronic Constipation, Chronic Diarrhea, Inflammatory Bowel Disease, Other (See Below) Other Gastrointestinal History: colitis. 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, Musculoskeletal History: Reports: Fracture Other Musculoskeletal History: foot Neurological History: Reports: Migraines Psychiatric History: Reports: Depression Endocrine/Metabolic History: Reports: Hypothyroidism, Obesity/BMI 30+ Hematologic History: Reports: Anemia, B12 Deficiency, Iron Deficiency - Infectious Disease History Infectious Disease History: Reports: Chicken Pox - Past Surgical History HEENT Surgical History: Reports: Adenoidectomy, Oral Surgery, Tonsillectomy GI Surgical History: Reports: Appendectomy, Bariatric Procedure, Cholecystectomy , Colonoscopy, EGD Other GI Surgeries/Procedures: reversal of RNY with repair of fistula. revision October 2019. 02/22/2020 abdominal surgery Female Surgical History: Reports: Hysterectomy Social & Family History - Family History Family Medical History: Noncontributory Cardiac: Reports: NM GI: Reports: None Musculoskeletal: Reports: Arthritis, RA Oncologic: Reports: Skin - Tobacco Use Smoking Status *Q: Never Smoker - Caffeine Use Caffeine Use: Reports: None - Recreational Drug Use Recreational Drug Use: No ED ROS GENERAL - Review of Systems Review Of Systems: See Below Constitutional: Reports: Fever, Chills, Malaise, Decreased Appetite HEENT: Denies: Ear Pain, Throat Pain Respiratory: Reports: Pleuritic Chest Pain. Denies: Shortness of Breath, Cough Cardiovascular: Denies: Chest Pain GI/Abdominal: Reports: Abdominal Pain, Decreased Appetite. Denies: Constipation , Diarrhea, Nausea, Vomiting : Reports: No Symptoms Musculoskeletal: Reports: No Symptoms Skin: Reports: No Symptoms Neurological: Denies: Dizziness, Headache Psychiatric: Reports: No Symptoms ED EXAM, GENERAL - Physical Exam Exam: See Below Exam Limited By: No Limitations General Appearance: Alert, No Apparent Distress Eye Exam: Bilateral Eye: Normal Inspection Head: Atraumatic Respiratory/Chest: No Respiratory Distress, Lungs Clear Cardiovascular: Regular Rate, Rhythm. No: Tachycardia GI/Abdominal: Normal Bowel Sounds, Soft, Other (Some diffuse tenderness to palpation only mild, along the left abdomen with no guarding or rebound tenderness. Her surgical incision is healed very nicely.) Course - Vital Signs Last Recorded V/S: Last Vital Signs Temp 96.5 F L 03/19/20 02:52 Pulse 57 L 03/19/20 02:52 Resp 16 03/19/20 02:52 BP 88/50 L 03/19/20 02:52 Pulse Ox 97 03/19/20 02:52 - Orders/Labs/Meds Orders: Active Orders 24 hr Category Date Time Status CULTURE BLOOD [BC] Urgent Lab 03/18/20 16:15 Received CULTURE BLOOD [BC] Urgent Lab 03/18/20 16:32 Received Sodium Chloride 0.9% [Saline Flush] Med 03/18/20 17:06 Active 10 ml FLUSH ASDIRECTED PRN Blood Culture x2 Reflex Set [OM.PC] Urgent Oth 03/18/20 16:20 Ordered Medication Orders Acetaminophen (Tylenol Extra Strength) 1,000 mg PO Q6H PRN PRN Reason: fever Last Admin: 03/19/20 05:53 Dose: 1,000 mg Admin: 03/18/20 20:13 Dose: 1,000 mg Ropivacaine 47 ml/Dexamethasone 8 mg/Epinephrine HCl 0.4 mg/ Sodium Chloride 30.6 ml 0 ml NERVRT ASDIRECTED [facility] Hydromorphone HCl (Dilaudid Educational Fundraising Director 15 Mg In Ns 30 Ml) 0 mg IV ASDIRECTED PRN; Protocol PRN Reason: DATA PROCESSING MECHANIC PAIN CONTROL Dextrose/Lactated Ringer's (Dextrose 5%-Lactated Ringers) 1,000 mls @ 200 mls/ hr IV ASDIRECTED [facility] Last Admin: 03/19/20 01:39 Dose: 200 mls/hr Infusion: 03/19/20 01:04 Dose: 200 mls/hr Admin: 03/18/20 20:04 Dose: 200 mls/hr Meropenem 500 mg/ Sodium (Chloride) 50 mls @ 100 mls/hr IV Q6H [facility] Last Admin: 03/19/20 02:49 Dose: 100 mls/hr Admin: 03/18/20 20:11 Dose: 100 mls/hr Ketamine HCl 50 mg/ Sodium (Chloride) 50 mls @ 18.48 mls/hr IV ASDIRECTED DELILAH Ketamine HCl (Ketalar) 31 mg IV ASDIRECTED DELILAH Naloxone HCl (Narcan) 0.1 mg IV ASDIRECTED PRN PRN Reason: decreased respiratory rate Ondansetron HCl (Zofran) 4 mg IVPUSH Q6H PRN PRN Reason: Nausea Sodium Chloride (Saline Flush) 10 ml FLUSH ASDIRECTED PRN PRN Reason: Keep Vein Open Last Admin: 03/18/20 17:45 Dose: 10 ml Temazepam (Restoril) 15 mg PO BEDTIME PRN PRN Reason: Insomnia Last Admin: 03/18/20 23:50 Dose: 15 mg Labs: Laboratory Tests 03/18/20 03/18/20 03/18/20 Range/Units 16:32 16:32 16:32 WBC 11.0 (4.5-11.0) K/uL RBC 3.76 (3.30-5.50) M/uL Hgb 10.3 L (12.0-15.0) g/dL Hct 32.5 L (36.0-48.0) % MCV 86 (80-98) fL MCH 27 (27-31) pg MCHC 32 (32-36) % Plt Count 451 H (150-400) K/uL Neut % (Auto) 94 H (36-66) % Lymph % (Auto) 2 L (24-44) % Carson % (Auto) 3 (2-6) % Eos % (Auto) 0 L (2-4) % Baso % (Auto) 0 (0-1) % Sodium 138 L (140-148) mmol/L Potassium 3.4 L (3.6-5.2) mmol/L Chloride 100 (100-108) mmol/L Carbon Dioxide 27 (21-32) mmol/L Anion Gap 14.4 H (5.0-14.0) mmol/L BUN 9 (7-18) mg/dL Creatinine 1.1 H D (0.6-1.0) mg/dL Est Cr Clr Drug Dosing 64.13 mL/min Estimated GFR (MDRD) 54 L (>60) Glucose 98 (74-106) mg/dL Lactic Acid 2.2 H (0.4-2.0) mmol/L Calcium 8.2 L (8.5-10.1) mg/dL Total Bilirubin 0.6 (0.2-1.0) mg/dL AST 23 (15-37) U/L ALT 20 (12-78) U/L Alkaline Phosphatase 127 H (46-116) U/L Total Protein 6.7 (6.4-8.2) g/dL Albumin 2.1 L (3.4-5.0) g/dL Globulin 4.6 H (2.3-3.5) g/dL Albumin/Globulin Ratio 0.5 L (1.2-2.2) Meds: Medications Generic Name Dose Route Start Last Admin Trade Name Freq PRN Reason Stop Dose Admin Acetaminophen 1,000 mg 03/18/20 19:38 03/19/20 05:53 Tylenol Extra Strength PO 1,000 mg Q6H PRN Administration fever Ropivacaine 47 ml/ 0 ml 03/19/20 09:00 Dexamethasone 8 mg/ NERVRT Epinephrine HCl 0.4 mg/ Sodium ASDIRECTED DELILAH Chloride 30.6 ml Hydromorphone HCl 0 mg 03/19/20 07:07 Dilaudid Educational Fundraising Director 15 Mg In Ns 30 Ml IV ASDIRECTED PRN DATA PROCESSING MECHANIC PAIN CONTROL Protocol Dextrose/Lactated Ringer's 1,000 mls @ 200 mls/hr 03/18/20 19:30 03/19/20 01: 39 Dextrose 5%-Lactated Ringers IV 200 mls/hr ASDIRECTED DELILAH Administration Meropenem 500 mg/ Sodium 50 mls @ 100 mls/hr 03/18/20 20:00 03/19/20 02:49 Chloride IV 100 mls/hr Q6H DELILAH Administration Ketamine HCl 50 mg/ Sodium 50 mls @ 18.48 mls/hr 03/19/20 09:00 Chloride IV ASDIRECTED DELILAH 5 MCG/KG/MIN Ketamine HCl 31 mg 03/19/20 09:00 Ketalar IV ASDIRECTED DELILAH Naloxone HCl 0.1 mg 03/19/20 07:07 Narcan IV ASDIRECTED PRN decreased respiratory rate Ondansetron HCl 4 mg 03/18/20 19:38 Zofran IVPUSH Q6H PRN Nausea Sodium Chloride 10 ml 03/18/20 17:06 03/18/20 17:45 Saline Flush FLUSH 10 ml ASDIRECTED PRN Administration Keep Vein Open Temazepam 15 mg 03/18/20 23:19 03/18/20 23:50 Restoril PO 15 mg BEDTIME PRN Administration Insomnia Discontinued Medications Generic Name Dose Route Start Last Admin Trade Name Dwain PRN Reason Stop Dose Admin Dexamethasone Confirm 03/19/20 07:15 Dexamethasone Administered 03/19/20 07:16 Dose 4 mg .ROUTE .STK-MED ONE Fentanyl Confirm 03/19/20 07:14 Sublimaze Administered 03/19/20 07:15 Dose 250 mcg .ROUTE .STK-MED ONE Glycopyrrolate Confirm 03/19/20 07:15 Robinul Administered 03/19/20 07:16 Dose 1 mg .ROUTE .STK-MED ONE Hydromorphone HCl 0.5 mg 03/18/20 19:37 03/19/20 05:47 Dilaudid IVPUSH 0.5 mg Q2H PRN Administration PAIN Sodium Chloride 1,000 mls @ 1,000 mls/hr 03/18/20 17:00 03/18/20 17:02 Normal Saline IV 1,000 mls/hr ASDIRECTED DELILAH Administration Sodium Chloride 80 mls @ 3 mls/sec 03/18/20 17:15 03/18/20 17:45 Normal Saline IV 3 mls/sec ASDIRECTED DELILAH Administration Linezolid Confirm 03/19/20 07:21 Zyvox Administered 03/19/20 07:22 Dose 300 mls @ as directed .ROUTE .STK-MED ONE Iopamidol 100 ml 03/18/20 17:15 03/18/20 17:45 Isovue-300 (61%) IV 100 ml . DIRECTED DELILAH Administration Meropenem Confirm 03/19/20 07:20 Merrem Administered 03/19/20 07:21 Dose 500 mg .ROUTE .STK-MED ONE Neostigmine Methylsulfate Confirm 03/19/20 07:15 Neostigmine Administered 03/19/20 07:16 Dose 5 mg .ROUTE .STK-MED ONE Ondansetron HCl Confirm 03/19/20 07:15 Zofran Administered 03/19/20 07:16 Dose 4 mg .ROUTE .STK-MED ONE Propofol Confirm 03/19/20 07:15 Diprivan 20 Ml Administered 03/19/20 07:16 Dose 200 mg .ROUTE .STK-MED ONE Rocuronium [place] Confirm 04/28/20 07:15 Zemuron Administered 03/19/20 07:16 Dose 50 mg .ROUTE .STK-MED ONE Succinylcholine Chloride Confirm 03/19/20 07:15 Quelicin Administered 03/19/20 07:16 Dose 200 mg .ROUTE .STK-MED ONE - Re-Assessments/Exams Free Text/Narrative Re-Assessment/Exam: 03/18/20 16:28 Because of the persistent fevers, blood cultures, lactic acid, CBC and CMP were obtained. We may have to CT the abdomen and look for subtle evidence of infection or abscess. 03/18/20 16:58 White count is 11,000, hemoglobin 10.3. Mild elevation in creatinine and mild decrease in GFR, electrolytes otherwise reassuring. Lactic acid still pending. Blood cultures have been drawn. Patient will be bolused with normal saline, and a CT of the abdomen and pelvis with IV contrast will be obtained. 03/18/20 19:11 IMPRESSION: CT of the abdomen shows slightly increased fluid in the left upper quadrant between the liver and spleen, extending to the superior portion of the gastric remnant, worrisome for postoperative abscess versus seroma. There is increased invagination of this fluid into the splenic hilum, with new low-density in the posterior splenic body adjacent to the fluid collection, worrisome for a developing splenic abscess. Again seen are multiple staple lines related to gastric bypass surgery. There has been resection of the gastric antrum during the interval. Again seen are changes of cholecystectomy with continued moderate dilatation of the common bile duct consistent with post cholecystectomy status. CT of the pelvis shows 2 new cysts in the left ovary with resolution of previously seen follicular cyst in the right ovary. No sign of any free air or free fluid in the abdomen. Trace amount of free fluid in the pelvis on the right, nonspecific. Above findings were discussed with Dr. Jones, he accepted her admission for IV antibiotics, n.p.o. after midnight and reassessment in the morning. Departure - Departure Time of Disposition: 19:20 Disposition: Admitted As Inpatient 67 Clinical Impression: Splenic abscess Abdominal pain Qualifiers: Abdominal location: left upper quadrant Qualified Code(s): R10.12 - Left upper quadrant pain Fever Qualifiers: Encounter type: initial encounter - Discharge Information Sepsis Event Note - Evaluation Sepsis Screening Result: Possible Sepsis Risk - Focused Exam Date Exam was Performed: 03/19/20 Time Exam was Performed: 07:52 - My Orders Last 24 Hours: My Active Orders 03/18/20 16:15 CULTURE BLOOD [BC] Urgent 03/18/20 16:20 Blood Culture x2 Reflex Set [OM.PC] Urgent 03/18/20 16:32 CULTURE BLOOD [BC] Urgent 03/18/20 17:06 Sodium Chloride 0.9% [Saline Flush] 10 ml FLUSH ASDIRECTED PRN - Assessment/Plan Last 24 Hours: My Active Orders 03/18/20 16:15 CULTURE BLOOD [BC] Urgent 03/18/20 16:20 Blood Culture x2 Reflex Set [OM.PC] Urgent 03/18/20 16:32 CULTURE BLOOD [BC] Urgent 03/18/20 17:06 Sodium Chloride 0.9% [Saline Flush] 10 ml FLUSH ASDIRECTED PRN
[2020-03-18] MEDS ORDERED: Sodium Chloride 0.9% 1,000 ML IV SCH (17:00)
[2020-03-18] MEDS ORDERED: Sodium Chloride 0.9% 10 ML Syringe FLUSH PRN (17:06)
[2020-03-18] MEDS ORDERED: Sodium Chloride 0.9% 80 ML IV SCH (17:15)
[2020-03-18] MEDS ORDERED: Iopamidol 612 MG/ML 100 ML Bottle IV SCH (17:15)
--- NOTE | 2020-03-18 18:59 | CRLCT ---
INDICATION: Persistent fever and abdominal pain. Surgery 3 weeks ago. COMPARISON: CT of the chest from 03/13/[address] of the abdomen and pelvis from 02/20/2020 TECHNIQUE: CT examination of the abdomen and pelvis was performed with the uneventful intravenous administration of 100 cc of Isovue-300 while 3 mm thick axial sections were obtained from the lung bases through the pubic symphysis. Oral contrast was not administered. Please note that all CT scans at this facility use dose modulation, iterative reconstruction, and/or weight-based dosing when appropriate to reduce radiation dose to as low as reasonably achievable. FINDINGS: In the abdomen, the liver is again seen to have a small low-density region in the anterior subcapsular medial segment of the left lobe of the liver adjacent to the falciform ligament, consistent with a hemangioma or focal fatty infiltration, probably of no clinical significance. The rest of the liver is normal in appearance. The pancreas and adrenals are normal in appearance. Again seen is a cortical and parapelvic cyst in the interpolar right kidney measuring up to 3.1 centimeters in diameter. The kidneys are otherwise normal in appearance. Clips are again seen in the gall bladder fossa from cholecystectomy. There continues to be moderate dilatation of the common bile duct, measuring 14 millimeters in caliber, consistent with post cholecystectomy status The abdominal aorta is normal in caliber with no sign of dilatation. There is no sign of retroperitoneal mass or adenopathy. Again seen is a lobulated fluid collection in the area of the gastric fundus, invaginating into the splenic hilum. This has increased in size, measuring 10.0 x 4.9 x 3.8 centimeters, previously 9.2 x 4.2 x 3.2 centimeters. There is new lobulated low density within the posterior body of the spleen as well, adjacent to the fluid collection in the hilum, measuring 3.8 x 2.6 x 1.7 centimeters. This could be a developing splenic abscess, but the appearance is nonspecific. Again seen are multiple lines of surgical casandra in the area of the residual small gastric remnant, consistent with the history of gastric bypass surgery and gastric resection. There is no sign of any extraluminal gas are related to any of the staple lines. Again seen are several lines of the small bowel casandra related to the small bowel anastomoses, with no sign of any stricture or obstruction. The rest of the loops of small bowel and colon in the abdomen are normal in appearance. In the pelvis, there are changes of appendectomy, with stable appearance of surgical casandra in the area of the appendix. An additional line of surgical casandra is seen in the left mid pelvis, consistent with additional small bowel resection and anastomosis, again with no sign of any structure. The loops of small bowel and colon in the pelvis are otherwise normal in appearance. The left ovary is now seen to have a few cysts, measuring 2.4 and 2.2 centimeters in diameter. The uterus is again seen to be absent, consistent with hysterectomy. The right adnexal region shows resolution of the previously seen small right ovarian cyst and is now normal in appearance. The urinary bladder is normal in appearance. There is no sign of pelvic or inguinal mass or adenopathy. There is no sign of free air or free fluid in the abdomen. There is a new trace amount of free fluid in the pelvis on the right, nonspecific. Pelvis. Again seen is a nonspecific noncalcified 4 millimeter subpleural nodule in the anterior inferior lingula toward the lung base, on axial image 14 series 2. This can be followed using Fleischner society criteria. The lung bases are otherwise clear. The osseous structures are normal in appearance for the patient`s age. I discussed the findings with Dr. Degroot at 1845 hours on 03/18/2020. IMPRESSION: CT of the abdomen shows slightly increased fluid in the left upper quadrant between the liver and spleen, extending to the superior portion of the gastric remnant, worrisome for postoperative abscess versus seroma. There is increased invagination of this fluid into the splenic hilum, with new low-density in the posterior splenic body adjacent to the fluid collection, worrisome for a developing splenic abscess. Again seen are multiple staple lines related to gastric bypass surgery. There has been resection of the gastric antrum during the interval. Again seen are changes of cholecystectomy with continued moderate dilatation of the common bile duct consistent with post cholecystectomy status. CT of the pelvis shows 2 new cysts in the left ovary with resolution of previously seen follicular cyst in the right ovary. No sign of any free air or free fluid in the abdomen. Trace amount of free fluid in the pelvis on the right, nonspecific. Please note that all CT scans at this facility use dose modulation, iterative reconstruction, and/or weight-based dosing when appropriate to reduce radiation dose to as low as reasonably achievable. Dictated by Bi Jack MD @ Mar 18 2020 6:25PM Signed by Dr. Bi Jack @ Mar 18 2020 6:58PM
[2020-03-18] MEDS ORDERED: Ondansetron 4 MG/2 ML SDV IVPUSH PRN (19:38)
[2020-03-18] MEDS: Dextrose 5%-Lactated Ringers 1,000 ML IV SCH (20:04)
[2020-03-18] MEDS: Meropenem 500 MG in Sodium Chloride 0.9% 50 ML IV SCH (20:11)
[2020-03-18] MEDS: HYDROmorphone 0.5 MG/0.5 ML Syringe IVPUSH PRN (20:13)
[2020-03-18] MEDS: Acetaminophen 500 MG Tab PO PRN (20:13)
[2020-03-18] MEDS ORDERED: Temazepam 15 MG Cap PO PRN (23:19)
[2020-03-19] MEDS: Dextrose 5%-Lactated Ringers 1,000 ML IV SCH ×3 (01:39→19:47)
[2020-03-19] MEDS: Meropenem 500 MG in Sodium Chloride 0.9% 50 ML IV SCH ×4 (02:49→19:55)
[2020-03-19] MEDS: HYDROmorphone 0.5 MG/0.5 ML Syringe IVPUSH PRN (05:47)
[2020-03-19] MEDS: Acetaminophen 500 MG Tab PO PRN (05:53)
[2020-03-19] MEDS ORDERED: Naloxone 0.4 MG/ML SDV IVPUSH PRN (06:11)
[2020-03-19] MEDS ORDERED: diphenhydrAMINE 50 MG/ML SDV IVPUSH PRN (06:11)
[2020-03-19] MEDS ORDERED: diphenhydrAMINE 25 MG Cap PO PRN (06:11)
[2020-03-19] MEDS ORDERED: HYDROmorphone/Normal Saline 15 MG/30 ML PCA IV SCH (06:15)
[2020-03-19] MEDS ORDERED: Naloxone 0.4 MG/ML SDV IV PRN (07:07)
[2020-03-19] MEDS ORDERED: fentaNYL 250 MCG/5 ML SDV ONE ×2 (07:14→10:13)
[2020-03-19] MEDS ORDERED: Propofol 200 MG/20 ML SDV ONE (07:15)
[2020-03-19] MEDS ORDERED: Succinylcholine 200 MG/10 ML MDV ONE (07:15)
[2020-03-19] MEDS ORDERED: Ondansetron 4 MG/2 ML SDV ONE (07:15)
[2020-03-19] MEDS ORDERED: Rocuronium 50 MG/5 ML Vial ONE (07:15)
[2020-03-19] MEDS ORDERED: Glycopyrrolate 0.2 MG/ML 5 ML MDV ONE (07:15)
[2020-03-19] MEDS ORDERED: Neostigmine Methylsulfate 1 MG/ML 5 ML Syringe ONE (07:15)
[2020-03-19] MEDS ORDERED: Dexamethasone 4 MG/ML SDV ONE (07:15)
[2020-03-19] MEDS ORDERED: Meropenem 500 MG SDV ONE (07:20)
[2020-03-19] MEDS: HYDROmorphone/Normal Saline 15 MG/30 ML PCA IV PRN (07:53)
[2020-03-19] MEDS ORDERED: Ketamine 50 MG in Sodium Chloride 0.9% 49.5 ML IV SCH (09:00)
[2020-03-19] MEDS ORDERED: Ketamine 500 MG/5 ML MDV IV SCH (09:00)
[2020-03-19] MEDS ORDERED: Lactated Ringers 1,000 ML ONE (10:14)
[2020-03-19] MEDS: Linezolid 600 MG in Premix Bag 1 BAG IV SCH ×2 (11:31→23:59)
[2020-03-19] MEDS ORDERED: Ondansetron 4 MG/2 ML SDV IVPUSH PRN (11:58)
[2020-03-19] MEDS ORDERED: hydrOXYzine HCL 100 MG/2 ML SDV IM PRN (11:58)
[2020-03-19] MEDS: Cyclobenzaprine 10 MG Tab PO PRN ×2 (12:17→22:40)
[2020-03-19] MEDS: Acetaminophen 500 MG Tab PO SCH ×2 (14:01→19:55)
--- NOTE | 2020-03-19 14:14 | PN ---
DATE OF SERVICE: 03/19/2020 SUBJECTIVE: Myrtle is n.p.o. She will be having surgery, case to follow today. She has no questions or concerns. She was admitted through the ER. Temperature max was 100.8. Pain is controlled using the MANAGER CARD. Remainder of review of systems negative for any pertinent positives or negatives. OBJECTIVE: GENERAL: Myrtle Estes is a pleasant 44-year-old female. VITAL SIGNS: TPR at 0252; 96.5, 57, 16. Blood pressure 88/50. HEENT: Negative. NECK: Supple. HEART: Regular rate and rhythm. LUNGS: Clear. ABDOMEN: There is tenderness in the upper right and left quadrants. EXTREMITIES: Without peripheral edema. NEUROLOGIC: Intact. PSYCHIATRIC: Mood and affect appropriate. ASSESSMENT: Left upper quadrant pain. CT revealed fluid collection worrisome for a developing splenic abscess. PLAN: The patient signed consent for exploratory laparotomy with splenectomy, general anesthesia, TAP block. After preoperative evaluation and discussion of possible risks and possible complications, the patient wishes to proceed with surgical procedure. Galina Bolden PA-C /[id number]
[2020-03-20] MEDS: Acetaminophen 500 MG Tab PO SCH ×4 (02:06→20:06)
[2020-03-20] MEDS: Meropenem 500 MG in Sodium Chloride 0.9% 50 ML IV SCH ×4 (02:06→20:09)
[2020-03-20] MEDS: Dextrose 5%-Lactated Ringers 1,000 ML IV SCH ×3 (02:14→22:41)
[2020-03-20] MEDS: HYDROmorphone/Normal Saline 15 MG/30 ML PCA IV PRN (02:15)
[2020-03-20] MEDS: Linezolid 600 MG in Premix Bag 1 BAG IV SCH (11:23)
--- NOTE | 2020-03-20 11:41 | PN ---
DATE OF SERVICE: 03/20/2020 SUBJECTIVE: Myrtle is postop day 1. States her pain has been controlled. She has been up ambulating. Oral intake was 240. Urine output via Ruiz catheter 1050. JAME drain put out 70, 40, and 60 of a light pink drainage. REVIEW OF SYSTEMS: Remainder of review of systems negative for any pertinent positives and negatives. OBJECTIVE: GENERAL: Myrtle is a pleasant 44-year-old female. VITAL SIGNS: TPR at 0219 is 96.8, 50, 16, blood pressure 122/74. HEENT: Negative. NECK: Supple. HEART: Regular rate and rhythm. LUNGS: Clear. ABDOMEN: Dressings dry and intact. JAME drains as above. Abdominal binder is on. EXTREMITIES: Without peripheral edema. ASSESSMENT: Exploratory laparotomy with: 1. Splenectomy with distal perisplenectomy. 2. Drainage of the left subphrenic abscess. 3. Drainage of separate perispleen intrasplenic (intra-abdominal) abscess. 4. Repair of area of splenic flexure of colon adherent to inflammatory mass. 5. Placement of Interceed mesh. POSTOPERATIVE DIAGNOSES: Splenic abscess with separate left subsplenic and perisplenic intra-abdominal abscess. Adhered portion of the splenic flexure of colon to area of perisplenic inflammation. Date of surgery: 03/19/2020. Surgeon: Aryan Jones MD. PLAN: 1. Schedule and have consent signed for delayed primary closure with IV local sedation, TAP block, , 03/21/2020, at 0715, n.p.o. after midnight. Surgeon: Aryan Jones MD. 2. Step 3 gastric bypass diet. 3. Decrease IV to 100 mL/hr. 4. Transfuse 1 unit of packed red blood cells today. 5. Check CBC, CMP, mag, phos in the a.m. 6. Leave Ruiz catheter in for accurate intake and output. 7. Continue ambulation and use of incentive spirometer. 8. We will evaluate p.r.n. or in a.m. Galina Bolden PA-C /[id number]
[2020-03-20] MEDS: diphenhydrAMINE 25 MG Cap PO PRN ×2 (13:46→22:41)
[2020-03-21] MEDS: HYDROmorphone/Normal Saline 15 MG/30 ML PCA IV PRN (00:03)
[2020-03-21] MEDS: Linezolid 600 MG in Premix Bag 1 BAG IV SCH ×2 (00:07→12:21)
[2020-03-21] MEDS: Acetaminophen 500 MG Tab PO SCH ×4 (02:45→19:27)
[2020-03-21] MEDS: Meropenem 500 MG in Sodium Chloride 0.9% 50 ML IV SCH ×2 (02:46→09:12)
[2020-03-21] MEDS ORDERED: Bupivacaine 0.5% 50 ML MDV ONE (06:36)
[2020-03-21] MEDS ORDERED: Meropenem 500 MG SDV ONE (06:36)
[2020-03-21] MEDS ORDERED: Lidocaine 1% with EPINEPHrine 1:100,000 50 ML MDV ONE (06:36)
[2020-03-21] MEDS ORDERED: Propofol 200 MG/20 ML SDV ONE ×2 (07:19→07:29)
[2020-03-21] MEDS ORDERED: fentaNYL 100 MCG/2 ML SDV ONE (07:19)
[2020-03-21] MEDS ORDERED: Lactated Ringers 1,000 ML ONE (07:26)
[2020-03-21] MEDS: Dextrose 5%-Lactated Ringers 1,000 ML IV SCH (09:06)
[2020-03-21] MEDS: Magnesium Sulfate/Water 2 GM in Premix Bag 1 BAG IV SCH ×3 (10:17→22:04)
--- NOTE | 2020-03-21 11:07 | PN ---
DATE OF SERVICE: 03/21/2020 SUBJECTIVE: Myrtle is n.p.o. She will be having delayed primary closure today at 07:15. Vital signs have been stable, afebrile, up ambulating. Oral intake 1600. Urine output via Ruiz catheter is 1650. She has 3 JAME drains, they put out 35, 55, and 105 of a pink drainage. REVIEW OF SYSTEMS: Remainder of review of systems negative for any pertinent positives and negatives. LABORATORY DATA: Hemoglobin 9.2, magnesium is 1.7. OBJECTIVE: GENERAL: Myrtle Estes is a 44-year-old female. She is alert and orientated. N.p.o. for delayed primary closure. VITAL SIGNS: TPR at 0300, 96.3; 76; 18; blood pressure 131/84. HEENT: Negative. NECK: Supple. HEART: Regular rate and rhythm. LUNGS: Clear. ABDOMEN: Dressings dry and intact. JAME drains intact. EXTREMITIES: Without peripheral edema. ASSESSMENT: 1. Exploratory laparotomy with splenectomy with distal pancreatectomy. 2. Drainage of left subphrenic abscess. 3. Drainage of separate mark-spleen intrasplenic intraabdominal abscess. 4. Repair of area of splenic flexure of colon adherent to inflammatory mass. 5. Placement of Interceed mesh. POSTOPERATIVE DIAGNOSIS: 1. Splenic abscess with separate left subsplenic and perisplenic intraabdominal abscess, adhered portion of the splenic flexure of the colon to area of perisplenic inflammation. 2. Date of surgery: 03/19/2020. Surgeon: Aryan Jones MD. PLAN: 1. Orders to be written after delayed primary closure. 2. Myrtle will be started on magnesium 2 g IV q.6 x72 hours, Zyvox. 3. Discontinue meropenem. 4. Continue good pulmonary toilet. 5. We will evaluate p.r.n. or in a.m. Galina Bolden PA-C /[id number]
[2020-03-21] MEDS: HYDROmorphone 2 MG Tab PO PRN ×2 (12:31→19:25)
[2020-03-22] MEDS: Linezolid 600 MG in Premix Bag 1 BAG IV SCH ×2 (00:39→14:13)
[2020-03-22] MEDS: Acetaminophen 500 MG Tab PO SCH ×4 (01:42→20:35)
[2020-03-22] MEDS: HYDROmorphone 2 MG Tab PO PRN ×4 (01:42→20:03)
[2020-03-22] MEDS: Magnesium Sulfate/Water 2 GM in Premix Bag 1 BAG IV SCH (04:44)
[2020-03-22] MEDS: Dextrose 5%-Lactated Ringers 1,000 ML IV SCH (04:48)
[2020-03-22] MEDS ORDERED: Non-Formulary Medication 1 Each (Levothyroxine [Levothyroxine] 175 MCG) PO SCH (07:30)
[2020-03-22] MEDS: Levothyroxine 25 MCG Tab PO SCH (08:38)
[2020-03-22] MEDS: Levothyroxine 100 MCG Tab PO SCH (08:38)
[2020-03-22] MEDS: Levothyroxine 50 MCG Tab PO SCH (08:38)
[2020-03-22] MEDS: Citalopram 20 MG Tab PO SCH (08:39)
--- NOTE | 2020-03-22 13:57 | PN ---
DATE OF SERVICE: 03/22/2020 SUBJECTIVE: Myrtle's vital signs have been stable, she has been afebrile. Pain has been not as well controlled. Oral intake was 2450 and urine output 3400. She was started on a step 4 diet. Culture showed alpha-strep. REVIEW OF SYSTEMS: Remainder of review of systems negative for any pertinent positives and negatives. OBJECTIVE: GENERAL: Myrtle Estes is a pleasant 44-year-old female. VITAL SIGNS: TPR at 0449, 97.6, 57, 18, blood pressure 138/76. HEENT: Negative. NECK: Supple. HEART: Regular rate and rhythm. LUNGS: Clear. ABDOMEN: Aquacel dressing on. Abdominal binder is on. EXTREMITIES: Without peripheral edema. ASSESSMENT: 1. Delayed primary closure on 03/21/2020. 2. Exploratory laparotomy with splenectomy with distal pancreatectomy. 3. Drainage of left subphrenic abscess. 4. Drainage of separate mark-spleen intrasplenic intraabdominal abscess. 5. Repair of area of splenic flexure of colon adherent to inflammatory mass and placement of Interceed mesh. For splenic abscess with separate left subsplenic and perisplenic intraabdominal abscess, adhered portion of the splenic flexure of the colon to area of perisplenic inflammation. Date of surgery: 03/19/2020. Surgeon: Aryan Jones MD. PLAN: 1. Continue Dilaudid for pain. 2. Discontinue IV magnesium. 3. Saline lock IV. 4. Continue with bowel stimulation. 5. Synthroid/levothyroxine 175 mcg p.o. daily and Celexa 20 mg p.o. daily. 6. Check CBC and CMP in a.m. 7. May shower. 8. Plan discharge in a.m. Galina Bolden PA-C /[id number]
[2020-03-22] MEDS: Linezolid 600 MG Tab PO SCH (15:53)
[2020-03-23] MEDS: HYDROmorphone 2 MG Tab PO PRN (00:17)
[2020-03-23] MEDS: Acetaminophen 500 MG Tab PO SCH ×2 (02:26→07:43)
[2020-03-23] MEDS: Linezolid 600 MG Tab PO SCH (03:26)
[2020-03-23] MEDS: Levothyroxine 25 MCG Tab PO SCH (07:43)
[2020-03-23] MEDS: Levothyroxine 100 MCG Tab PO SCH (07:43)
[2020-03-23] MEDS: Levothyroxine 50 MCG Tab PO SCH (07:43)
[2020-03-23 09:42] VITALS: BP 126/74; PULSE 57
[2020-03-23] MEDS: Citalopram 20 MG Tab PO SCH (10:36)
--- NOTE | 2020-03-25 14:51 | PN ---
DATE OF SERVICE: 03/21/2020 The patient has been afebrile with stable vital signs. Culture is growing out a Staph species, which is sensitive to Zyvox. We will discontinue the meropenem. Otherwise, delayed primary closure of both JAME drains along with Ruiz catheter today and she will undergo delayed primary closure. She will be continuing the pain medication, but switch over to oral version, and magnesium is somewhat low and that will be supplemented. She may be ready for discharge home tomorrow or the next day. Aryan Jones MD /[id number]
--- NOTE | 2020-03-25 15:59 | DISCH ---
FINAL DIAGNOSES: 1. Multifocal splenic abscess with separate left subphrenic and perisplenic (intraabdominal) abscess. 2. Densely adherent portion of splenic flexure to colon in the area of perisplenic inflammation. 3. Bariatric surgery status. 4. Status post recent total gastrectomy with Cande-en-Y reconstruction. 5. Anxiety. 6. History of treated hypothyroidism. SUMMARY: This is a 44-year-old recently status post a completion total gastrectomy which involved quite dense inflammation in the area of the gastric fundus and the spleen. The patient initially did well, but came back with onset of fever, and after this had been ongoing for about 10 days and the patient had a previous ER visit that did not show any obvious intraabdominal problems, she presents now on 03/18/20, and this showed a splenic abscess along with some perisplenic fluid, most likely infected. On examination of the abscess on CT scan, there was a primary abscess site, but there were also some smaller ones next to it which were multifocal, and given this, the best approach appeared to be to proceed with a splenectomy. This would be rapidly definitive in terms of curing issue as well. This was done on 03/19/20, and the patient had the splenectomy along with drainage of an abscess near the splenic hilum and subphrenic abscess. Cultures on this showed an alpha strep. On postop day 2, the patient underwent a delayed primary closure. Overall, the patient has done well postoperatively, and drains were removed on the day of primary closure, as they had cleared, and the amylase levels were normal. She will be sent home on her usual medications plus Augmentin 875 mg p.o. b.i.d. x7 days #14, Flexeril 10 mg p.o. q.8 hours p.r.n. #30, and Dilaudid 2 mg p.o. q.4 hours p.r.n. pain #42. The operative procedure performed during this hospitalization included: 1. On 03/19/20: a. Exploratory laparotomy with splenectomy with distal pancreatectomy. b. Drainage of subphrenic abscess. c. Drainage of separate perisplenic (intraabdominal) abscess. d. Repair of area of splenic flexure of the colon adherent to inflammatory mass. e. Placement of Interceed mesh. 2. On 03/21/20, is delayed primary closure of abdominal incision. Follow up will be with Galina Bolden on Wednesday03/29/2020 for staple removal and overall check. Needs to be followed up with Dr. Jones at [facility] on 04/03/2020. At that time, we probably will have sufficient time at that point to give her postsplenectomy immunizations. We will check CBC at both appointments in order to ascertain whether the platelet count is exceeding one million, which would be indication for initiation of aspirin.
--- NOTE | 2020-03-31 10:07 | OR ---
DATE OF PROCEDURE: 03/19/2020 SURGEON: Aryan Jones MD PREOPERATIVE DIAGNOSIS: Splenic abscess. POSTOPERATIVE DIAGNOSES: 1. Multifocal splenic abscess with separate left subphrenic and perisplenic ( intra- abdominal) abscesses. 2. Densely adherent portion of splenic flexure of colon to area of perisplenic inflammation. OPERATIVE PROCEDURE: Exploratory laparotomy with: 1. Splenectomy with distal pancreatectomy (60904). 2. Drainage of left subphrenic abscess (07677). 3. Drainage of separate perisplenic (intra-abdominal) abscess (09000). 4. Deep repair of area of splenic flexure of colon that deserosalized after takedown of adherence of the colon to the inflammatory mass adjacent to the spleen ( 71188). 5. Placement of Interceed mesh to limit recurrent adhesion formation between pelvic and abdominal wall and underlying viscera (44479). ANESTHESIA: General. TYPE BAR AND SEGMENT ASSEMBLER: Galina Bolden PA-C INDICATIONS FOR PROCEDURE: The patient is status post a recent total gastrectomy. At that time, the patient had a dense adherence of inflammation between the gastric fundus and area of the upper pole of the spleen and adjacent diaphragm. Following this, the patient did initially well, but has had progressive problems with increasing pain and some fevers. I see at the present emergency room visit, the patient had what appeared to be multifocal splenic abscess. There is a well-defined abscess in the upper pole of the spleen with some satellite abscesses evident on CT scan, along with an adjacent subhepatic abscess. Given this, the plan is to proceed with an exploratory laparotomy and splenectomy and drainage of abscesses as indicated. Potential risks including bleeding, infection, injury to underlying viscera, as well as possibility of cardiopulmonary, septic, or hemorrhagic complications leading to were all discussed, and the patient wishes to proceed. DETAILS OF PROCEDURE: The patient was taken to the operating room. After general endotracheal anesthesia was induced, a Ruiz catheter was inserted and the abdomen prepped and draped. Previous upper midline incision was then reopened and carried down through the skin and subcutaneous tissue, fascia, and into the peritoneal cavity. On the inferior aspect of the incision, there is relatively little in the way of adhesions. This allowed the dissection plane primarily with blunt dissection upward toward the spleen. As one passed surgeon 's hand around the lateral aspect of the spleen, the abscess cavity in the subphrenic area was encountered. This was some old blood, which was quite malodorous and obviously infected. Cultures of this were obtained and that area evacuated. The lateral attachments of the spleen, as well as superior attachments, were then taken down with a combination of blunt and sharp dissection. A separate abscess was then encountered within the hilum of the spleen. This was cultured as well and evacuated. This allowed mobilization of the spleen from its retroperitoneal attachments. Mobilized the spleen and distal pancreas up into the wound. The spleen was then incised with a combination of purple and carrasquillo LUMA loads. The plane of excision included a small tip of the distal pancreas and the specimen then delivered from the field. The staple lines were then found to be intact. The abdomen was then irrigated with a combination of meropenem and Zyvox containing saline solution. At that point, all areas appeared to be clear. Three Reggie-Frost drains were then placed through the left subcostal area and positioned in the area of the splenic fossa and distal pancreatectomy. The distal pancreatectomy and splenic vessel closures were then reinforced with some fibrin sealant. At that point, no further problems were noted. Interceed mesh was placed across the lower abdomen and down toward into the pelvis, and the midline fascia then approximated with #2 Vicryl stitch. The skin and subcutaneous tissue were left open for planned delayed primary closure. Drains were sutured to the skin with some 3-0 Vicryl stitch and bilateral subcostal transversus abdominis plane blocks were then placed with ultrasound guidance. The patient was taken to the recovery room in satisfactory condition. Physician household personal assistant, Galina Bolden, played essential role in assisting in this case, helping to position the patient, retract structures as needed, as well as suturing and cutting sutures when indicated. Her presence improved the patient's safety and decreased the operative time. Aryan Jones MD /[id number] [facility]ENTERDawood
--- NOTE | 2020-03-31 12:48 | OR ---
DATE OF PROCEDURE: 03/21/2020 SURGEON: Aryan Jones MD PREOPERATIVE DIAGNOSIS: Open abdominal incision. POSTOPERATIVE DIAGNOSIS: Open abdominal incision. OPERATIVE PROCEDURE: Delayed primary closure of open abdominal incision. ANESTHESIA: IV sedation plus local. INDICATIONS FOR PROCEDURE: The patient is status post splenectomy for splenic abscess along with drainage of intraabdominal and subphrenic abscesses. During the time of procedure, the patient was already high risk for wound infection. Primary closure was undertaken. Given this, the wound was packed open for a planned delayed primary closure set up at this time. Potential risks including bleeding and infection were reviewed, and the patient wishes to proceed. DETAILS OF PROCEDURE: The patient was taken to the operating room and placed in a supine position. IV sedation was administered after which the operative dressing was taken down and inspected. The wound was clean, and the area was then prepped and draped, anesthetized with 1% lidocaine mixed with Marcaine, and irrigated with meropenem-containing saline solution. Incision was then closed with some 3-0 and 4-0 Vicryl stitch deep and then casandra for the skin. Bilateral transversus abdominis plane blocks with ultrasound guidance were placed, and the patient was taken to the recovery room in satisfactory condition. There were no evident complications. Aryan Jones MD /[id number]
== END 2020-03-23 10:10 | disposition home or self-care (01) | DRG 799 ==
LOC: JP.ED 15:55 → JP.MS 19:00
PROVIDERS: ADMIT Surgery; ATTEND Surgery
PROC: 07TP0ZZ Resection of Spleen, Open Approach (ICD-10-PCS; principal; 2020-03-19)
PROC: 0FBG0ZZ Excision of Pancreas, Open Approach (ICD-10-PCS; 2020-03-19)
PROC: 0W9F0ZZ Drainage of Abdominal Wall, Open Approach (ICD-10-PCS; 2020-03-19)
PROC: 0W9G0ZZ Drainage of Peritoneal Cavity, Open Approach (ICD-10-PCS; 2020-03-19)
PROC: 3E0M05Z Introduction of Adhesion Barrier into Peritoneal Cavity, Open Approach (ICD-10-PCS; 2020-03-19)
PROC: 0JQ80ZZ Repair Abdomen Subcutaneous Tissue and Fascia, Open Approach (ICD-10-PCS; 2020-03-21)
DX: D73.3 Abscess of spleen (principal); K65.1 Peritoneal abscess; F41.9 Anxiety disorder, unspecified; E03.9 Hypothyroidism, unspecified; H54.7 Unspecified visual loss; K59.09 Other constipation; K52.9 Noninfective gastroenteritis and colitis, unspecified; N93.8 Other specified abnormal uterine and vaginal bleeding; G43.909 Migraine, unspecified, not intractable, without status migrainosus; E66.9 Obesity, unspecified; E53.8 Deficiency of other specified B group vitamins; F32.9 Major depressive disorder, single episode, unspecified; Z90.49 Acquired absence of other specified parts of digestive tract; Z90.710 Acquired absence of both cervix and uterus; Z79.899 Other long term (current) drug therapy; Z79.890 Hormone replacement therapy; Z68.32 Body mass index [BMI] 32.0-32.9, adult; Z98.84 Bariatric surgery status
CPT/HCPCS: 36415; 36430; 74177; 80053; 82150; 83605; 83735; 83880; 84100; 84443; 85025; 85027; 86850; 86900; 86901; 86920; 86922; 87040; 87070; 87075; 87205; 88305; 94762; 99283; 99285-25; A9270-GY; J0171; J0330; J1100; J1170; J2020; J2185; J2405; J2704; J2710; J2795; J3010; J3410; J3475; J3490; J7030; J7050; J7120; J7121; P9016; Q9967

== ENCOUNTER 2020-08-10 17:16 | Emergency (ER) | payer MEDICAID ==
[2020-08-10 17:37] VITALS: BP 129/79; PULSE 66
--- NOTE | 2020-08-10 18:16 | EDM.PDOC ---
ED HPI GENERAL MEDICAL PROBLEM - General Chief Complaint: General Time Seen by Provider: 08/10/20 18:08 Source of Information: Reports: Patient, RN Notes Reviewed History Limitations: Reports: No Limitations - History of Present Illness INITIAL COMMENTS - FREE TEXT/NARRATIVE: 45-year-old female presents emergency department a complaint of abdominal distention and notices a bulge when she does sit ups. She recently had some abdominal surgeries in February of this year and has started exercising again. She is concerned about the bulge in her abdominal wall - Related Data Allergies Allergy/AdvReac Type Severity Reaction Status Date / Time No Known Allergies Allergy Verified 03/13/20 18:51 Home Meds: Home Meds Cyanocobalamin (Vitamin B-12) [Vitamin B-12] 2,500 mcg SL DAILY 02/16/14 [History] Cholecalciferol (Vitamin D3) [Vitamin D3] 5,000 unit PO DAILY 12/12/16 [History] Levothyroxine 200 mcg PO ACBREAKFAST 12/12/16 [History] Calcium Citrate/Vitamin D3 [Calcium Citrate + D] 1 tab PO DAILY 06/14/17 [History] Multivitamin with Minerals [Multiple Vitamin] 1 tab PO BID 06/14/17 [History] Vitamin B Complex [B Complex] 1 tab PO DAILY 06/14/17 [History] Acetaminophen [Tylenol Extra Strength] 500 mg PO ASDIRECTED PRN 03/18/20 [History] Amoxicillin/Potassium Clav [Augmentin 875-125 Tablet] 1 each PO BID #14 tablet 03/22/20 [Rx] Amitriptyline [Elavil] 10 mg PO BEDTIME 08/10/20 [History] Past Medical History HEENT History: Reports: Impaired Vision Gastrointestinal History: Reports: Chronic Constipation, Chronic Diarrhea, Inflammatory Bowel Disease, Other (See Below) Other Gastrointestinal History: colitis. 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, Musculoskeletal History: Reports: Fracture Other Musculoskeletal History: foot Neurological History: Reports: Migraines Psychiatric History: Reports: Depression Endocrine/Metabolic History: Reports: Hypothyroidism, Obesity/BMI 30+ Hematologic History: Reports: Anemia, B12 Deficiency, Iron Deficiency - Infectious Disease History Infectious Disease History: Reports: Chicken Pox - Past Surgical History HEENT Surgical History: Reports: Adenoidectomy, Oral Surgery, Tonsillectomy GI Surgical History: Reports: Appendectomy, Bariatric Procedure, Cholecystectomy, Colonoscopy, EGD Other GI Surgeries/Procedures: reversal of RNY with repair of fistula. revision October 2019. 02/22/2020 abdominal surgery Female Surgical History: Reports: Hysterectomy Social & Family History - Family History Family Medical History: Noncontributory Cardiac: Reports: PA GI: Reports: None Musculoskeletal: Reports: Arthritis, RA Oncologic: Reports: Skin - Tobacco Use Smoking Status *Q: Never Smoker - Caffeine Use Caffeine Use: Reports: Coffee, Soda, Tea - Recreational Drug Use Recreational Drug Use: No ED ROS GENERAL - Review of Systems Review Of Systems: See Below Constitutional: Reports: No Symptoms Respiratory: Reports: No Symptoms Cardiovascular: Reports: No Symptoms GI/Abdominal: Reports: Flatus. Denies: Abdominal Pain, Constipation, Diarrhea, Nausea, Vomiting ED EXAM, GENERAL - Physical Exam Exam: See Below Exam Limited By: No Limitations General Appearance: Alert, WD/WN, No Apparent Distress Respiratory/Chest: No Respiratory Distress GI/Abdominal: Normal Bowel Sounds, Soft, Non-Tender, Distended, Other (Rectus diastases) Course - Vital Signs Last Recorded V/S: Last Vital Signs Temp 97.8 F 08/10/20 17:36 Pulse 66 08/10/20 17:36 Resp 16 08/10/20 17:36 BP 129/79 08/10/20 17:36 Pulse Ox 98 08/10/20 17:36 - Orders/Labs/Meds Orders: Active Orders 24 hr Category Date Time Status Abdomen 1V Upright [CR] Stat Exams 08/10/20 18:13 Ordered Departure - Departure Time of Disposition: 18:34 Disposition: Home, Self-Care 01 Condition: Fair Clinical Impression: Rectus diastasis - Discharge Information Instructions: Diastasis Recti Referrals: Yolande Sweeney MD [Primary Care Provider] - Forms: ED Department Discharge Additional Instructions: Recommend trying the rectus diastases exercises and then a product such as simethicone or Beano for gas reduction follow-up primary care 3 to 5 days if not better Sepsis Event Note (ED) - Evaluation Sepsis Screening Result: No Definite Risk - Focused Exam Vital Signs: Vital Signs Temp Pulse Resp BP Pulse Ox 08/10/20 17:36 97.8 F 66 16 129/79 98 - My Orders Last 24 Hours: My Active Orders 08/10/20 18:13 Abdomen 1V Upright [CR] Stat - Assessment/Plan Last 24 Hours: My Active Orders 08/10/20 18:13 Abdomen 1V Upright [CR] Stat Plan: Assessment Acuity = chronic Site and laterality = rectus diastases Etiology = probably related to recent surgeries Manifestations = none Location of injury = Home Lab values = plain film the abdomen does show a large amount of stool and gas Plan Recommend trying the rectus diastases exercises and then a product such as simethicone or Beano for gas reduction follow-up primary care 3 to 5 days if not better This note was dictated using [employer] voice recognition software please call with any questions on syntax or grammar.
--- NOTE | 2020-08-12 10:08 | CR ---
Abdomen 1V Upright CLINICAL HISTORY: Distention FINDINGS: No free air is identified. There are scattered air-filled loops of small bowel in a nonspecific pattern. There is moderate stool in the right colon. There is mild gaseous distention throughout. There has been previous left upper quadrant surgery. IMPRESSION: Gaseous distention of small bowel and colon in a nonspecific pattern Moderate fecal retention in the right colon
== END 2020-08-10 18:47 | disposition home or self-care (01) ==
LOC: JP.ED 17:16
DX: M62.08 Separation of muscle (nontraumatic), other site (principal); E66.9 Obesity, unspecified; Z68.31 Body mass index [BMI] 31.0-31.9, adult; Z90.49 Acquired absence of other specified parts of digestive tract; Z98.84 Bariatric surgery status
CPT/HCPCS: 74018; 74018-26; 99284-25

== ENCOUNTER 2020-11-18 16:28 | Emergency (ER) | payer MEDICAID ==
[2020-11-18 16:56] VITALS: BP 109/63; PULSE 56
--- NOTE | 2020-11-18 17:58 | EDM.PDOC ---
ED HPI GENERAL MEDICAL PROBLEM - General Chief Complaint: Abdominal Pain Stated Complaint: abd pain Time Seen by Provider: 11/18/20 17:25 Source of Information: Reports: Patient, Old Records History Limitations: Reports: No Limitations - History of Present Illness INITIAL COMMENTS - FREE TEXT/NARRATIVE: 45 yo female here with 4 days of abdominal pain that was at its worst last night. No fever. Has had multiple abdominal surgeries. Has chronic diarrhea that has been worse lately. No nausea or vomiting. No distention. Texted Galina Bolden earlier today and by the time she got back to [place], [place] had to be in [place] for her car. Came here now due to it being late in the afternoon. Onset: Gradual Onset Date: 11/14/20 Duration: Day(s): (4), Waxing/Waning Location: Reports: Abdomen Quality: Reports: Ache Severity: Moderate Improves with: Reports: None Worsens with: Reports: Other (unsure) Context: Reports: Other (See HPI) Associated Symptoms: Reports: No Other Symptoms. Denies: Chest Pain, Fever/Chills, Nausea/Vomiting Treatments SERVICE OPERATIONS MANAGER: Reports: Other (see below) (none) - Related Data Allergies Allergy/AdvReac Type Severity Reaction Status Date / Time No Known Allergies Allergy Verified 03/13/20 18:51 Home Meds: Home Meds Cyanocobalamin (Vitamin B-12) [Vitamin B-12] 2,500 mcg SL DAILY 02/16/14 [History] Cholecalciferol (Vitamin D3) [Vitamin D3] 5,000 unit PO DAILY 12/12/16 [History] Levothyroxine 200 mcg PO ACBREAKFAST 12/12/16 [History] Calcium Citrate/Vitamin D3 [Calcium Citrate + D] 1 tab PO DAILY 06/14/17 [History] Multivitamin with Minerals [Multiple Vitamin] 1 tab PO BID 06/14/17 [History] Vitamin B Complex [B Complex] 1 tab PO DAILY 06/14/17 [History] Acetaminophen [Tylenol Extra Strength] 500 mg PO ASDIRECTED PRN 03/18/20 [History] Amoxicillin/Potassium Clav [Augmentin 875-125 Tablet] 1 each PO BID #14 tablet 03/22/20 [Rx] Amitriptyline [Elavil] 10 mg PO BEDTIME 08/10/20 [History] Past Medical History HEENT History: Reports: Impaired Vision Gastrointestinal History: Reports: Chronic Constipation, Chronic Diarrhea, Inflammatory Bowel Disease, Other (See Below) Other Gastrointestinal History: colitis. 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: Dysfunctional Uterine Bleeding, Musculoskeletal History: Reports: Fracture Other Musculoskeletal History: foot Neurological History: Reports: Migraines Psychiatric History: Reports: Depression Endocrine/Metabolic History: Reports: Hypothyroidism, Obesity/BMI 30+ Hematologic History: Reports: Anemia, B12 Deficiency, Iron Deficiency - Infectious Disease History Infectious Disease History: Reports: Chicken Pox - Past Surgical History HEENT Surgical History: Reports: Adenoidectomy, Oral Surgery, Tonsillectomy GI Surgical History: Reports: Appendectomy, Bariatric Procedure, Cholecystectomy, Colonoscopy, EGD Other GI Surgeries/Procedures: reversal of RNY with repair of fistula. revision October 2019. 02/22/2020 abdominal surgery Female Surgical History: Reports: Hysterectomy Social & Family History - Family History Family Medical History: No Pertinent Family History Cardiac: Reports: NV GI: Reports: None Musculoskeletal: Reports: Arthritis, RA Oncologic: Reports: Skin - Tobacco Use Tobacco Use Status *Q: Never Tobacco User - Caffeine Use Caffeine Use: Reports: Coffee - Recreational Drug Use Recreational Drug Use: No ED ROS GENERAL - Review of Systems Review Of Systems: See Below Constitutional: Reports: No Symptoms HEENT: Reports: No Symptoms Respiratory: Reports: No Symptoms Cardiovascular: Reports: No Symptoms GI/Abdominal: Reports: Abdominal Pain, Diarrhea. Denies: Black Stool, Bloody Stool, Constipation, Hematemesis, Hematochezia, Melena, Nausea, Vomiting : Reports: No Symptoms Musculoskeletal: Reports: No Symptoms Skin: Reports: No Symptoms Neurological: Reports: No Symptoms Psychiatric: Reports: No Symptoms ED EXAM, GI/ABD - Physical Exam Exam: See Below Exam Limited By: No Limitations General Appearance: Alert, WD/WN, No Apparent Distress Eyes: Bilateral: Normal Appearance Ears: Normal External Exam, Normal Canal, Hearing Grossly Normal Nose: Normal Inspection, No Blood Throat/Mouth: Normal Inspection, Normal Lips, Normal Oropharynx, Normal Voice, N o Airway Compromise Head: Atraumatic, Normocephalic Neck: Normal Inspection Respiratory/Chest: No Respiratory Distress, Lungs Clear, Normal Breath Sounds, No Accessory Muscle Use Cardiovascular: Regular Rate, Rhythm, No Edema GI/Abdominal Exam: Normal Bowel Sounds, Soft, No Distention, Tender (minimal central tenderness). No: Non-Tender, Distended, Guarding, Rigid, Rebound Back Exam: Normal Inspection. No: CVA Tenderness (R), CVA Tenderness (L) Extremities: Normal Inspection, Normal Range of Motion, Non-Tender, No Pedal Edema, Normal Capillary Refill. No: Pedal Edema Neurological: Alert, Oriented, CN II-XII Intact, Normal Cognition, No Motor/Sensory Deficits Psychiatric: Normal Affect, Normal Mood Skin Exam: Warm, Dry, Intact, Normal Color, No Rash Course - Vital Signs Last Recorded V/S: Last Vital Signs Temp 35.5 C L 11/18/20 17:03 Pulse 56 L 11/18/20 17:03 Resp 12 11/18/20 17:03 BP 109/63 11/18/20 17:03 Pulse Ox 97 11/18/20 17:03 - Orders/Labs/Meds Orders: Active Orders 24 hr Category Date Time Status Abdomen 2V AP Flat Upright [CR] Stat Exams 11/18/20 17:26 Taken Labs: Laboratory Tests 11/18/20 11/18/20 11/18/20 Range/Units 17:25 17:51 17:51 WBC 9.8 (4.5-11.0) K/uL RBC 3.94 (3.30-5.50) M/uL Hgb 11.5 L (12.0-15.0) g/dL Hct 36.1 (36.0-48.0) % MCV 92 (80-98) fL MCH 29 (27-31) pg MCHC 32 (32-36) % Plt Count 382 (150-400) K/uL Sodium 135 L (140-148) mmol/L Potassium 4.4 (3.6-5.2) mmol/L Chloride 102 (100-108) mmol/L Carbon Dioxide 31 (21-32) mmol/L Anion Gap 6.4 (5.0-14.0) mmol/L BUN 12 D (7-18) mg/dL Creatinine 0.6 (0.6-1.0) mg/dL Est Cr Clr Drug Dosing 116.35 mL/min Estimated GFR (MDRD) > 60 (>60) Glucose 62 L (74-106) mg/dL Calcium 8.1 L (8.5-10.1) mg/dL Lipase (73-393) U/L Urine Color Yellow (YELLOW) Urine Appearance Clear (CLEAR) Urine pH 5.5 (5.0-8.0) Ur Specific [place] 1.020 (1.008-1.030) Urine Protein Negative (NEGATIVE) mg/dL Urine Glucose (UA) Negative (NEGATIVE) mg/dL Urine Ketones Negative (NEGATIVE) mg/dL Urine Occult Blood Negative (NEGATIVE) Urine Nitrite Negative (NEGATIVE) Urine Bilirubin Negative (NEGATIVE) Urine Urobilinogen 0.2 (0.2-1.0) EU/dL Ur Leukocyte Esterase Negative (NEGATIVE) Urine RBC Not seen (0-5) Urine WBC 0-5 (0-5) Ur Epithelial Cells Few Amorphous Sediment Not seen Urine Bacteria Many Urine Mucus Not seen 11/18/20 Range/Units 17:51 WBC (4.5-11.0) K/uL RBC (3.30-5.50) M/uL Hgb (12.0-15.0) g/dL Hct (36.0-48.0) % MCV (80-98) fL MCH (27-31) pg MCHC (32-36) % Plt Count (150-400) K/uL Sodium (140-148) mmol/L Potassium (3.6-5.2) mmol/L Chloride (100-108) mmol/L Carbon Dioxide (21-32) mmol/L Anion Gap (5.0-14.0) mmol/L BUN (7-18) mg/dL Creatinine (0.6-1.0) mg/dL Est Cr Clr Drug Dosing mL/min Estimated GFR (MDRD) (>60) Glucose (74-106) mg/dL Calcium (8.5-10.1) mg/dL Lipase 107 (73-393) U/L Urine Color (YELLOW) Urine Appearance (CLEAR) Urine pH (5.0-8.0) Ur Specific [place] (1.008-1.030) Urine Protein (NEGATIVE) mg/dL Urine Glucose (UA) (NEGATIVE) mg/dL Urine Ketones (NEGATIVE) mg/dL Urine Occult Blood (NEGATIVE) Urine Nitrite (NEGATIVE) Urine Bilirubin (NEGATIVE) Urine Urobilinogen (0.2-1.0) EU/dL Ur Leukocyte Esterase (NEGATIVE) Urine RBC (0-5) Urine WBC (0-5) Ur Epithelial Cells Amorphous Sediment Urine Bacteria Urine Mucus - Radiology Interpretation Free Text/Narrative:: Flat/upright Abd X-rays-neg Departure - Departure Time of Disposition: 18:22 Disposition: Home, Self-Care 01 Condition: Fair Clinical Impression: Nonspecific abdominal pain - Discharge Information *PRESCRIPTION DRUG MONITORING PROGRAM REVIEWED*: No *COPY OF PRESCRIPTION DRUG MONITORING REPORT IN PATIENT KUSUM: No Instructions: Abdominal Pain, Adult, [id number] Referrals: Yolande Sweeney MD [Primary Care Provider] - Forms: ED Department Discharge Additional Instructions: Acetaminophen as needed for pain relief. Diet as tolerated. Check with your providers tomorrow if your symptoms persist. Sepsis Event Note (ED) - Evaluation Sepsis Screening Result: No Definite Risk - Focused Exam Vital Signs: Vital Signs Temp Pulse Resp BP Pulse Ox 11/18/20 17:03 35.5 C L 56 L 12 109/63 97 11/18/20 16:55 35.5 C L 56 L 12 109/63 97 - My Orders Last 24 Hours: My Active Orders 11/18/20 17:26 Abdomen 2V AP Flat Upright [CR] Stat - Assessment/Plan Last 24 Hours: My Active Orders 11/18/20 17:26 Abdomen 2V AP Flat Upright [CR] Stat
--- NOTE | 2020-11-19 09:15 | CR ---
Abdomen 2V AP Flat Upright CLINICAL HISTORY: Abdominal pain FINDINGS: No free air is identified. Small intestinal configuration is nonspecific. Patient has had previous abdominal surgery likely bariatric surgery. There is moderate stool throughout the colon. IMPRESSION: Nonacute intestinal gas pattern Previous abdominal surgery
== END 2020-11-18 18:29 | disposition home or self-care (01) ==
LOC: JP.ED 16:28
DX: R10.9 Unspecified abdominal pain (principal); E03.9 Hypothyroidism, unspecified; F32.9 Major depressive disorder, single episode, unspecified; G43.909 Migraine, unspecified, not intractable, without status migrainosus; E66.9 Obesity, unspecified; Z79.899 Other long term (current) drug therapy; Z68.31 Body mass index [BMI] 31.0-31.9, adult
CPT/HCPCS: 36415; 74019; 74019-26; 80048; 81001; 83690; 85027; 99284